=== PATIENT | male | born 1965 | race Caucasian/White ===

== ENCOUNTER 2017-03-12 23:17 | Emergency (ER) | payer SELFPAY ==
--- NOTE | 2017-03-12 23:40 | ERPHSYRPT ---
- History of Present Illness Time Seen by Provider: 03/12/17 23:33 Source: patient Exam Limitations: no limitations Patient Subjective Stated Complaint: pt states he got choked on a piece of turkey this evening adn feels like it is still stuck in his throat. Triage Nursing Assessment: pt alert and oriented. answers questions approp. pt ambulatory with steady gait noted. respirations nonlabored with lungs cta. pt restless in bed and holding throat when he swallows. nothing visualized in back of throat. no gagging or vomiting at this time. Physician History: The patient is a 51-year-old male with his complaining of hitting a piece of turkey meat stuck in his throat while eating 7 hours ago. He was chewing the meat when it accidentally slipped down his throat. He coughed it up. He felt like there was still a small piece stuck in his throat so he stuck his finger down his throat in order to make him vomit. He vomited. Now it feels like his throat is very painful when he swallows. He is unsure if anything is still in his throat. He has been able to drink significant amounts of water. When he vomited, he had some blood in his vomit. He has no problems breathing. His past medical history is significant for COPD and diabetes. Timing/Duration: hour(s) (7), sudden Severity: moderate Modifying Factors: Improves With: nothing Associated Symptoms: vomiting (self-induced) Allergies/Adverse Reactions: No Known Drug Allergies Allergy (Verified 03/12/17 23:33) Home Medications: Metformin HCl 1000 mg [Glucophage 1000 MG] 1,000 mg PO BID 12/23/14 [History] Hum Insulin NPH/Reg Insulin Hm [Humulin 70-30 Vial] 30 unit SQ BID 03/12/17 [ History] Hx Tetanus, Diphtheria Vaccination/Date Given: Yes Hx Influenza Vaccination/Date Given: No Hx Pneumococcal Vaccination/Date Given: No Immunizations Up to Date: Yes - Review of Systems Constitutional: No Fever, No Chills Eyes: No Symptoms Ears, Nose, & Throat: Throat Pain Respiratory: No Cough, No Dyspnea Cardiac: No Chest Pain, No Edema, No Syncope Abdominal/Gastrointestinal: Vomiting (self-induced) Genitourinary Symptoms: No Dysuria Musculoskeletal: No Back Pain, No Neck Pain Skin: No Rash Neurological: No Dizziness, No Focal Weakness, No Sensory Changes Psychological: No Symptoms Endocrine: No Symptoms Hematologic/Lymphatic: No Symptoms Immunological/Allergic: No Symptoms All Other Systems: Reviewed and Negative - Past Medical History Pertinent Past Medical History: Yes Endocrine Medical History: Diabetes Type II - Past Surgical History Past Surgical History: No - Social History Smoking Status: Current every day smoker How long have you smoked: 35 yrs Exposure to second hand smoke: Yes Drug Use: none Patient Lives Alone: No - Nursing Vital Signs Nursing Vital Signs: Initial Vital Signs Temperature 97.9 F Temperature Source Oral Pulse Rate 96 Respiratory Rate 16 Blood Pressure [] 99/68 Blood Pressure 122/83 Pain Intensity 6 - Physical Exam General Appearance: moderate distress (distress only when swallowing) Eye Exam: PERRL/EOMI, eyes nml inspection Ears, Nose, Throat Exam: normal ENT inspection, TMs normal, pharynx normal, moist mucous membranes Neck Exam: normal inspection, non-tender, supple, full range of motion Respiratory Exam: normal breath sounds, lungs clear, No respiratory distress Cardiovascular Exam: regular rate/rhythm, normal heart sounds, normal peripheral pulses Gastrointestinal/Abdomen Exam: soft, normal bowel sounds, No tenderness, No mass Rectal Exam: not done Back Exam: normal inspection, normal range of motion, No CVA tenderness, No vertebral tenderness Extremity Exam: normal inspection, normal range of motion, pelvis stable Neurologic Exam: alert, oriented x 3, cooperative, normal mood/affect, nml cerebellar function, nml station & gait, sensation nml, No motor deficits Skin Exam: normal color, warm, dry, No rash Lymphatic Exam: No adenopathy SpO2 Interpretation: normal SpO2: 100 Oxygen Delivery: Room Air - Radiology Exams Other X-ray Interpretation: Interpreted by me, Other (Possible FB in proximal anterior esophagus.) Ordered Tests: Active Orders 24 hr Category Date Time Status IV Insertion STAT Care 03/12/17 23:46 Active NECK SOFT TISSUE Stat Exams 03/12/17 23:45 Ordered Medication Summary Generic Name Dose Route Start Last Admin Trade Name Freq PRN Reason Stop Dose Admin Nitroglycerin 0.4 mg 03/13/17 01:00 03/13/17 01:04 Nitrostat 0.4 Mg Tablet SL 04/12/17 00:59 0.4 mg PRN PRN Administration CHEST PAIN Discontinued Medications Generic Name Dose Route Start Last Admin Trade Name Freq PRN Reason Stop Dose Admin Al Hydrox/Mg Hydrox/Simethicone Confirm 03/13/17 00:04 Maalox Es 30 Ml Unit Dose Administered 03/13/17 00:05 Dose 30 ml .ROUTE .STK-MED ONE Belladonna Alkaloids/Phenobarbital 60 ml 03/12/17 23:45 03/13/17 00:09 Gi Cocktail 60ml (Belladonn/Phenobarb/Lidoc* PO 03/12/17 23:46 60 ml STAT ONE Administration Belladonna Alkaloids/Phenobarbital Confirm 03/13/17 00:04 Donnatol Liquid Administered 03/13/17 00:05 Dose 64.8 mg .ROUTE .STK-MED ONE Glucagon Confirm 03/13/17 00:28 Glucagen 1 Mg Administered 03/13/17 00:29 Dose 1 mg .ROUTE .STK-MED ONE Glucagon 1 mg 03/13/17 00:29 03/13/17 00:30 Glucagen 1 Mg IV 03/13/17 00:30 1 mg STAT ONE Administration Glucagon 1 mg 03/13/17 00:46 03/13/17 00:52 Glucagen 1 Mg IV 03/13/17 00:47 1 mg STAT ONE Administration Lidocaine HCl Confirm 03/13/17 00:03 Xylocaine Hcl Viscous * Administered 03/13/17 00:04 Dose 20 ml .ROUTE .STK-MED ONE Morphine Sulfate 4 mg 03/13/17 00:33 03/13/17 00:38 Morphine Sulfate 4 Mg Inj IV 03/13/17 00:34 4 mg STAT ONE Administration Morphine Sulfate Confirm 03/13/17 00:36 Morphine Sulfate 4 Mg Inj Administered 03/13/17 00:37 Dose 4 mg .ROUTE .STK-MED ONE Morphine Sulfate 4 mg 03/13/17 01:13 03/13/17 01:15 Morphine Sulfate 4 Mg Inj IV 03/13/17 01:14 4 mg STAT ONE Administration Morphine Sulfate Confirm 03/13/17 01:15 Morphine Sulfate 4 Mg Inj Administered 03/13/17 01:16 Dose 4 mg .ROUTE .STK-MED ONE Nitroglycerin Confirm 03/13/17 01:00 Nitrostat 0.4 Mg (Ed) Administered 03/13/17 01:01 Dose 0.4 mg SL .STK-MED ONE - Progress Progress: unchanged Progress Note: 03/13/17 01:13 The patient was given glucagon 1 mg 2 by IV and nitroglycerin 0.4 mg sublingual without improvement. The patient consumed several ounces of a carbonated beverage without relief and without vomiting. The patient complains of severe proximal esophageal pain. Counseled pt/family regarding: diagnosis, rad results - Departure Time of Disposition: 01:41 Departure Disposition: Transfer (Transfer to [facility] per hospitalist, Dr Nguyễn, and GI doctor, Dr Marin.) Clinical Impression: Esophageal foreign body Condition: Stable Critical Care Time: No Additional Instructions: You are being transferred to [facility] per and Dr Marin for an esophageal foreign body. You were given glucagon 1 mg IV 2 and nitroglycerin glycerin 0.4 mg sublingual in the ER. You were also given morphine 4 mg IV 2.
[2017-03-12] MEDS ORDERED: GI COCKTAIL 60ML (Belladonn/Phenobarb/Lidoc PO ONE (23:45)
[2017-03-13] MEDS ORDERED: XYLOCAINE HCl Viscous ONE (00:03)
[2017-03-13] MEDS ORDERED: Donnatol Liquid ONE (00:04)
[2017-03-13] MEDS ORDERED: MAALOX ES 30 ML UNIT DOSE ONE (00:04)
[2017-03-13] MEDS ORDERED: GlucaGen 1 MG ONE (00:28)
[2017-03-13] MEDS ORDERED: GlucaGen 1 MG IV ONE ×2 (00:29→00:46)
[2017-03-13] MEDS ORDERED: MORPHINE SULFATE 4 MG INJ IV ONE ×2 (00:33→01:13)
[2017-03-13] MEDS ORDERED: MORPHINE SULFATE 4 MG INJ ONE ×2 (00:36→01:15)
[2017-03-13] MEDS ORDERED: Nitrostat 0.4 MG Tablet SL PRN (01:00)
[2017-03-13] MEDS ORDERED: Nitrostat 0.4 MG (ED) SL ONE (01:00)
[2017-03-13 02:13] VITALS: BP 97/64; PULSE 78; O2SAT 98
--- NOTE | 2017-03-13 15:12 | XRAY ---
Exam: Two-view neck soft tissues from 03/13/2017. Comparison: None. Indication: Patient choked while eating turkey. States he feels like it is stuck at the C5 or C6 level. Rule out foreign body. Findings: Upright AP and lateral images were obtained. The epiglottis, hypopharynx, and tracheal airway appear unremarkable. No prevertebral soft tissue swelling is seen. The hyoid bone and thyroid cartilage appear unremarkable. There is a 4 mm in length, transversely oriented, linear radiodensity anterior to the C5 level which could possibly relate to a small ingested foreign body, perhaps representing a tiny bone fragment. I note early/mild degenerative disc disease at C4-C5 manifested by minimal narrowing of the interspace with mild anterior and minimal posterior vertebral endplate spurring. The remainder of the cervical spine appears unremarkable. Impression: 1. There is a 4 mm transverse linear density seen about 13-14 mm anterior to the lower C5 level on the lateral radiograph of unclear etiology. This could possibly represent an ingested foreign body density within the proximal cervical esophagus ( ? bone fragment). 2. Mild/early degenerative disc disease is seen at C4-C5.
== END 2017-03-13 02:35 | disposition short-term general hospital (02) ==
LOC: ED 23:17
DX: T18.128A Food in esophagus causing other injury, initial encounter (principal)
CPT/HCPCS: 36000; 70360; 96374; 96375; 96376; 99285; J1610; J2270; A9270-GY

== ENCOUNTER 2018-05-24 09:21 | Emergency (ER) | payer MEDICAID, SELFPAY ==
[2018-05-24] MEDS ORDERED: Sodium Chloride 0.9% 1000 ML 1,000 ML IV SCH (09:30)
--- NOTE | 2018-05-24 09:38 | ERPHSYRPT ---
- History of Present Illness Time Seen by Provider: 05/24/18 09:32 Source: patient Exam Limitations: no limitations Physician History: This 52-year-old white male with history of diabetes COPD. He is brought by the medics patient apparently had a seizure in bed next to his significant other. Patient was noted to be postictal by the medics prior to arrival. Currently patient is alert oriented 3. Patient denies previous seizure activity. Past medical history includes COPD and diabetes. Past surgical history is negative. Social history positive tobacco use. Occasional alcohol use last time 2 weeks ago. Denies illicit drug use. Timing/Duration: today (just prior to arrival) Severity: moderate Modifying Factors: Improves With: nothing Associated Symptoms: other (patient had a seizure aned bit his tongue just prior to arrival), No nausea, No vomiting, No abdominal pain, No shortness of breath, No heartburn, No diaphoresis, No cough, No chills, No chest pain, No fever, No headaches, No loss of appetite, No malaise, No rash, No syncope, No seizure, No weakness Allergies/Adverse Reactions: No Known Drug Allergies Allergy (Verified 03/12/17 23:33) Home Medications: Metformin HCl 1000 mg [Glucophage 1000 MG] 1,000 mg PO BID 12/23/14 [History] Hum Insulin NPH/Reg Insulin Hm [Humulin 70-30 Vial] 30 unit SQ BID 03/12/17 [ History] Hx Tetanus, Diphtheria Vaccination/Date Given: Yes Hx Influenza Vaccination/Date Given: No Hx Pneumococcal Vaccination/Date Given: No - Review of Systems Constitutional: No Fever, No Chills Eyes: No Symptoms Ears, Nose, & Throat: Other (patient bit his tongue), No Ear Pain, No Ear Discharge, No Hearing Changes, No Tinnitus, No Nose Pain, No Nose Congestion, No Nose Discharge, No Sinus Drainage, No Epistaxis, No Mouth Pain, No Mouth Swelling, No Loose Teeth, No Throat Pain, No Throat Swelling, No Hoarse, No Painful Swallowing, No Snoring, No Stridor Respiratory: No Cough, No Dyspnea Cardiac: No Chest Pain, No Edema, No Syncope Abdominal/Gastrointestinal: No Abdominal Pain, No Nausea, No Vomiting, No Diarrhea Genitourinary Symptoms: No Dysuria Musculoskeletal: No Back Pain, No Neck Pain Skin: No Rash Neurological: Seizure (patiet had a seizure just pr heior to arrival) Psychological: No Symptoms Endocrine: No Symptoms All Other Systems: Reviewed and Negative - Past Medical History Pertinent Past Medical History: Yes Endocrine Medical History: Diabetes Type II - Past Surgical History Past Surgical History: No - Social History Smoking Status: Current every day smoker How long have you smoked: 35 yrs Exposure to second hand smoke: Yes Drug Use: none Patient Lives Alone: No - Nursing Vital Signs Nursing Vital Signs: Initial Vital Signs Temperature 97.8 F 05/24/18 09:26 Pulse Rate 78 05/24/18 09:26 Respiratory Rate 18 05/24/18 09:26 Blood Pressure 119/79 05/24/18 09:26 O2 Sat by Pulse Oximetry 98 05/24/18 09:26 Pain Scale Pain Intensity 6 - Physical Exam General Appearance: no apparent distress, alert Eye Exam: PERRL/EOMI, eyes nml inspection Ears, Nose, Throat Exam: normal ENT inspection, TMs normal, pharynx normal, moist mucous membranes, other (several abrasions on tongue,avulsed right lower incisor, ) Neck Exam: normal inspection, non-tender, supple, full range of motion Respiratory Exam: normal breath sounds, lungs clear, No respiratory distress Cardiovascular Exam: regular rate/rhythm ( tooth him follow-up wit), normal heart sounds, normal peripheral pulses Gastrointestinal/Abdomen Exam: soft, normal bowel sounds, No tenderness, No mass Back Exam: normal inspection, normal range of motion, No CVA tenderness, No vertebral tenderness Extremity Exam: normal inspection, normal range of motion, pelvis stable Neurologic Exam: alert, oriented x 3, cooperative, train electronic technician II-XII nml as tested, normal mood/affect, nml cerebellar function, nml station & gait, sensation nml, No motor deficits Skin Exam: normal color, warm, dry, No rash SpO2 Interpretation: normal (97%) - Course Nursing assessment & vital signs reviewed: Yes EKG Interpreted by Me: RATE (72 bpm), Sinus Rhythm, NORMAL AXIS, Other (EKG: Sinus rhythm, 72 bpm, normal axis, no acute ST or T wave changes noted.) - CT Exams Head CT Interpretation: Tele-radiologist Report (head CT: Impression: 1. No acute intracranial abnormality, 2. Volume loss.) Ordered Tests: Active Orders 24 hr Category Date Time Status Accucheck STAT Care 05/24/18 09:30 Active EKG-ER Only STAT Care 05/24/18 09:30 Active IV Insertion STAT Care 05/24/18 09:30 Active Pulse Oximetry (ED) STAT Care 05/24/18 09:30 Active Seizure Precautions -SCCHED STAT Care 05/24/18 09:30 Active HEAD WITHOUT CONTRAST [CT] Stat Exams 05/24/18 09:31 Taken CBC W DIFF Stat Lab 05/24/18 09:30 Completed CMP Stat Lab 05/24/18 09:30 Completed ETHYL ALCOHOL Stat Lab 05/24/18 09:30 Completed UA W/ MICROSCOPIC Stat Lab 05/24/18 11:00 Completed Urine Triage Profile Stat Lab 05/24/18 11:00 Completed Medication Summary Generic Name Dose Route Start Last Admin Trade Name Freq PRN Reason Stop Dose Admin Sodium Chloride 1,000 mls @ 100 mls/hr 05/24/18 09:30 05/24/18 10:46 Sodium Chloride 0.9% 1000 Ml IV 06/23/18 09:29 100 mls/hr .Q10H LESIA Administration Discontinued Medications Generic Name Dose Route Start Last Admin Trade Name Freq PRN Reason Stop Dose Admin Acetaminophen 650 mg 05/24/18 10:19 05/24/18 10:46 Tylenol 325 Mg PO 05/24/18 10:20 650 mg STAT ONE Administration Acetaminophen Confirm 05/24/18 10:38 Tylenol 325 Mg Administered 05/24/18 10:39 Dose 650 mg .ROUTE .STK-MED ONE Hydrocodone Bitart/Acetaminophen 1 tab 05/24/18 11:22 05/24/18 11:25 [place] 5/325 Mg PO 05/24/18 11:23 1 tab STAT ONE Administration Hydrocodone Bitart/Acetaminophen Confirm 05/24/18 11:24 [place] 5/325 Mg Administered 05/24/18 11:25 Dose 1 tab .ROUTE .STK-MED ONE Lab/Rad Data: Laboratory Result Diagrams 05/24/18 09:30 05/24/18 09:30 Laboratory Results 05/24/18 05/24/18 05/24/18 Range/Units 11:00 11:00 09:30 WBC (4.0-10.5) K/mm3 RBC (4.1-5.6) M/mm3 Hgb (12.5-18.0) gm/dl Hct (42-50) % MCV (78-100) fl MCH (26-32) pg MCHC (32-36) g/dl RDW (11.5-14.0) % Plt Count (150-450) K/mm3 MPV (6-9.5) fl Gran % (36.0-66.0) % Eos # (Auto) (0-0.5) Absolute Lymphs (auto) (1.0-4.6) Absolute Monos (auto) (0.0-1.3) Lymphocytes % (24.0-44.0) % Monocytes % (0.0-12.0) % Eosinophils % (0.00-5.0) % Basophils % (0.0-0.4) % Absolute Granulocytes (1.4-6.9) Basophils # (0-0.4) Sodium (137-145) mmol/L Potassium (3.5-5.1) mmol/L Chloride (98-107) mmol/L Carbon Dioxide (22-30) mmol/L Anion Gap (5-15) MEQ/L BUN (9-20) mg/dL Creatinine (0.66-1.25) mg/dL Estimated GFR ML/MIN Glucose (74-106) mg/dL Calcium (8.4-10.2) mg/dL Total Bilirubin (0.2-1.3) mg/dL AST (17-59) U/L ALT (0-50) U/L Alkaline Phosphatase (38-126) U/L Serum Total Protein (6.3-8.2) g/dL Albumin (3.5-5.0) g/dL Ur Collection Type CCMS Urine Color YELLOW (YELLOW) Urine Appearance CLEAR (CLEAR) Urine pH 5.0 (5-6) Ur Specific [place] 1.020 (1.005-1.025) Urine Protein TRACE (Negative) Urine Ketones MODERATE (NEGATIVE) Urine Blood 250 (0-5) Diomedes/ul Urine Nitrite NEGATIVE (NEGATIVE) Urine Bilirubin NEGATIVE (NEGATIVE) Urine Urobilinogen NORMAL (0-1) mg/dL Ur Leukocyte Esterase NEGATIVE (NEGATIVE) Urine Microscopic RBC 2-5 (0-2) /HPF Urine Microscopic WBC 0-2 (0-5) /HPF Ur Epithelial Cells RARE (FEW) /HPF Granular Casts 0-2 (NEGATIVE) /LPF Urine Mucus MODERATE (NEGATIVE) /HPF Urine Culture Reflexed NO (NO) Urine Glucose NEGATIVE (NEGATIVE) mg/dL Urine Opiates Level NEGATIVE (NEGATIVE) Ur Methadone NEGATIVE (NEGATIVE) Urine Barbiturates NEGATIVE (NEGATIVE) Ur Phencyclidine (PCP) NEGATIVE (NEGATIVE) Urine Amphetamine NEGATIVE (NEGATIVE) U Benzodiazepine Level NEGATIVE (NEGATIVE) Urine Cocaine NEGATIVE (NEGATIVE) Urine Marijuana (THC) NEGATIVE (NEGATIVE) Ethyl Alcohol < 10 (0-10) mg/dL Specimen Received 1100 05/24/18 05/24/18 05/24/18 Range/Units 09:30 09:30 WBC 11.5 H (4.0-10.5) K/mm3 RBC 4.55 (4.1-5.6) M/mm3 Hgb 14.7 (12.5-18.0) gm/dl Hct 43.1 (42-50) % MCV 94.7 (78-100) fl MCH 32.3 H (26-32) pg MCHC 34.1 (32-36) g/dl RDW 12.6 (11.5-14.0) % Plt Count 261 (150-450) K/mm3 MPV 10.8 H (6-9.5) fl Gran % 75.4 H (36.0-66.0) % Eos # (Auto) 0.08 (0-0.5) Absolute Lymphs (auto) 2.07 (1.0-4.6) Absolute Monos (auto) 0.63 (0.0-1.3) Lymphocytes % 18.1 L (24.0-44.0) % Monocytes % 5.5 (0.0-12.0) % Eosinophils % 0.7 (0.00-5.0) % Basophils % 0.3 (0.0-0.4) % Absolute Granulocytes 8.65 H (1.4-6.9) Basophils # 0.03 (0-0.4) Sodium 143 (137-145) mmol/L Potassium 3.7 (3.5-5.1) mmol/L Chloride 105 (98-107) mmol/L Carbon Dioxide 24 (22-30) mmol/L Anion Gap 18.0 H (5-15) MEQ/L BUN 18 (9-20) mg/dL Creatinine 0.87 (0.66-1.25) mg/dL Estimated GFR > 60.0 ML/MIN Glucose 80 (74-106) mg/dL Calcium 9.4 (8.4-10.2) mg/dL Total Bilirubin 0.30 (0.2-1.3) mg/dL AST 23 (17-59) U/L ALT 20 (0-50) U/L Alkaline Phosphatase 96 (38-126) U/L Serum Total Protein 8.0 (6.3-8.2) g/dL Albumin 4.8 (3.5-5.0) g/dL Ur Collection Type Urine Color (YELLOW) Urine Appearance (CLEAR) Urine pH (5-6) Ur Specific [place] (1.005-1.025) Urine Protein (Negative) Urine Ketones (NEGATIVE) Urine Blood (0-5) Diomedes/ul Urine Nitrite (NEGATIVE) Urine Bilirubin (NEGATIVE) Urine Urobilinogen (0-1) mg/dL Ur Leukocyte Esterase (NEGATIVE) Urine Microscopic RBC (0-2) /HPF Urine Microscopic WBC (0-5) /HPF Ur Epithelial Cells (FEW) /HPF Granular Casts (NEGATIVE) /LPF Urine Mucus (NEGATIVE) /HPF Urine Culture Reflexed (NO) Urine Glucose (NEGATIVE) mg/dL Urine Opiates Level (NEGATIVE) Ur Methadone (NEGATIVE) Urine Barbiturates (NEGATIVE) Ur Phencyclidine (PCP) (NEGATIVE) Urine Amphetamine (NEGATIVE) U Benzodiazepine Level (NEGATIVE) Urine Cocaine (NEGATIVE) Urine Marijuana (THC) (NEGATIVE) Ethyl Alcohol (0-10) mg/dL Specimen Received - Progress Progress: improved Progress Note: 05/24/18 09:42 This is a 52-year-old white male who arrives with complaint of a seizure and was found in bed after tonic-clonic activity noted by his . Patient initially postictally patient denies history of seizures in the past. Patient apparently pulled a tooth out of his right lower incisor region. This is been placed in milk. Patient does have a history of diabetes he states he drinks occasionally last time he drank was 2 weeks ago he denies any illicit drug use. . 05/24/18 10:[address] Awad at [facility] in [place] concerning the patient's avulsed tooth. He states that the patient can present to the [place] office when he is done here.. Patient's tooth was placed in milk. It is noted that there is only 1 4- 1/3 third of the tooth which appears to be root. Head CT has been obtained. I am awaiting urinalysis and UDS patient appears to be stable. He was given Tylenol for pain in his tongue. 05/24/18 11:25 Patient's lab work was all essentially normal with the exception of moderate ketones in his urine. Patient's glucose was running in the 80s. Patient was given on [place] tablet because of complaints of pain. The patient has been stable since arrival no further signs of seizures. Will plan to discharge patient. He will be given instructions as to no driving, no hazardous activity no heights. He will need to follow-up with his family doctor. He will also need to follow-up with [facility] in [place] on [address]. Today he is to bring his tooth with him. - Departure Time of Disposition: 11:27 Departure Disposition: Home Clinical Impression: Seizure Avulsed tooth Qualifiers: Encounter type: initial encounter Qualified Code(s): S03.2XXA - Dislocation of tooth, initial encounter Condition: Fair Critical Care Time: No Referrals: [facility]I LE MD [Primary Care Provider] - Instructions: Seizures, Adult (DC) Additional Instructions: Return home. No driving, no heights, no hazardous activity, take showers instead of baths, do not engage in any activity that might harm yourself or others. Follow-up with your family doctor. Follow-up with [facility], [address] [place], [place] today.bring your tooth with you leave it in milk. Monitor your blood sugars carefully. Return for acute distress or for severe symptoms. Refer to [facility] [phone]
[2018-05-24 09:45] LABS: BASOPHIL % 0.3 % (0.0-0.4); Basophil (Absolute #) 0.03 (0-0.4); Eosinophil % 0.7 % (0.00-5.0); Eosinophil (Absolute #) 0.08 (0-0.5); Granulocyte Absolute (ANC) 8.65 (1.4-6.9); Granulocytes % 75.4 % (36.0-66.0); Hematocrit 43.1 % (42-50); Hemoglobin 14.7 gm/dl (12.5-18.0); Lymphocyte (Absolute #) 2.07 (1.0-4.6); Lymphocytes % 18.1 % (24.0-44.0); Mean Cell Volume 94.7 fl (78-100); Mean Corpuscular Hemoglobin 32.3 pg (26-32); Mean Corpuscular Hgb Concent. 34.1 g/dl (32-36); Mean Platelet Volume 10.8 fl (6-9.5); Monocyte (Absolute #) 0.63 (0.0-1.3); Monocytes % 5.5 % (0.0-12.0); Platelet Count 261 K/mm3 (150-450); Red Blood Count 4.55 M/mm3 (4.1-5.6); Red Cell Distribution Width 12.6 % (11.5-14.0); White Blood Count 11.5 K/mm3 (4.0-10.5)
[2018-05-24 09:55] LABS: ALBUMIN 4.8 g/dL (3.5-5.0); ALKALINE PHOSPHATASE 96 U/L (38-126); BLOOD UREA NITROGEN 18 mg/dL (9-20); CHLORIDE 105 mmol/L (98-107); Calcium 9.4 mg/dL (8.4-10.2); Carbon Dioxide 24 mmol/L (22-30); Creatinine 1 0.87 mg/dL (0.66-1.25); Glucose 80 mg/dL (74-106); Potassium 3.7 mmol/L (3.5-5.1); SGOT/AST 23 U/L (17-59); SGPT/ALT 20 U/L (0-50); SODIUM 143 mmol/L (137-145)
[2018-05-24] MEDS ORDERED: TYLENOL 325 MG PO ONE (10:19)
[2018-05-24] MEDS ORDERED: TYLENOL 325 MG ONE (10:38)
[2018-05-24] MEDS ORDERED: Sodium Chloride 0.9% 1000 ML 1,000 ML ONE (10:38)
[2018-05-24 11:02] LABS: Appearance CLEAR (CLEAR); Leukocyte Esterase NEGATIVE (NEGATIVE); Nitrite NEGATIVE (NEGATIVE)
[2018-05-24 11:03] LABS: Bilirubin NEGATIVE (NEGATIVE); Blood 250 Ery/ul (0-5); Glucose NEGATIVE (NEGATIVE); Ketones MODERATE (NEGATIVE); Protein,Urine Dip TRACE (Negative); Urobilinogen NORMAL mg/dL (0-1)
[2018-05-24 11:11] LABS: Epithelial Cells RARE /HPF (FEW); Granular Casts 0-2 /LPF (NEGATIVE); Mucus MODERATE /HPF (NEGATIVE); WBC 0-2 /HPF (0-5)
[2018-05-24 11:18] LABS: Amphetamine,Urine NEGATIVE (NEGATIVE); Barbiturate,Urine NEGATIVE (NEGATIVE); Benzodiazepine,Urine NEGATIVE (NEGATIVE); Cocaine,Urine NEGATIVE (NEGATIVE); Methadone,Urine NEGATIVE (NEGATIVE); Opiate,Urine NEGATIVE (NEGATIVE); PCP,Urine NEGATIVE (NEGATIVE); THC,Urine NEGATIVE (NEGATIVE)
[2018-05-24] MEDS ORDERED: NORCO 5/325 MG PO ONE (11:22)
[2018-05-24] MEDS ORDERED: NORCO 5/325 MG ONE (11:24)
[2018-05-24 12:39] VITALS: BP 109/96; PULSE 68; O2SAT 99
--- NOTE | 2018-05-24 21:15 | XRAY ---
Indication: Nausea, headache, and loss of consciousness. Seizure. Multiple contiguous axial images obtained through the head without contrast. Comparison: None Normal appearing brain parenchyma, ventricles, and bony calvarium. Minimal mucosal thickening of both maxillary sinuses. Remaining visualized paranasal sinuses and mastoid air cells are clear. Impression: No acute intracranial abnormalities. Minimal paranasal sinus disease. Comment: Preliminary interpretation was made by [facility]. No discrepancy. CTDI 49.71
== END 2018-05-24 12:51 | disposition home or self-care (01) ==
LOC: ED 09:21
DX: R56.9 Unspecified convulsions (principal); S03.2XXA Dislocation of tooth, initial encounter; E11.9 Type 2 diabetes mellitus without complications; Z79.4 Long term (current) use of insulin
CPT/HCPCS: 36415; 70450; 80053; 80307; 81000; 82962; 85025; 93005; 96360; 96361; 99284; A9270-GY; G0480

== ENCOUNTER 2018-06-17 06:06 | Observation (INO) | payer OTHER ==
[2018-06-17] MEDS ORDERED: Sodium Chloride 0.9% 1000 ML 1,000 ML IV STA ×2 (06:37→07:11)
[2018-06-17] MEDS ORDERED: Sodium Chloride 0.9% 1000 ML 1,000 ML ONE ×3 (06:40→08:34)
[2018-06-17 06:55] LABS: BASOPHIL % 0.3 % (0.0-0.4); Basophil (Absolute #) 0.03 (0-0.4); Eosinophil % 0.2 % (0.00-5.0); Eosinophil (Absolute #) 0.02 (0-0.5); Granulocyte Absolute (ANC) 7.39 (1.4-6.9); Granulocytes % 81.3 % (36.0-66.0); Hematocrit 52.7 % (42-50); Hemoglobin 18.2 gm/dl (12.5-18.0); Lymphocyte (Absolute #) 1.45 (1.0-4.6); Mean Cell Volume 92.3 fl (78-100); Mean Corpuscular Hemoglobin 31.8 pg (26-32); Mean Corpuscular Hgb Concent. 34.5 g/dl (32-36); Mean Platelet Volume 11.7 fl (6-9.5); Monocytes % 2.2 % (0.0-12.0); Platelet Count 302 K/mm3 (150-450); Red Blood Count 5.71 M/mm3 (4.1-5.6); Red Cell Distribution Width 12.5 % (11.5-14.0); White Blood Count 9.1 K/mm3 (4.0-10.5)
[2018-06-17 07:12] LABS: ALBUMIN 5.6 g/dL (3.5-5.0); ANION GAP 37.7 MEQ/L (5-15); BILIRUBIN,TOTAL 0.5 mg/dL (0.2-1.3); Calcium 10.1 mg/dL (8.4-10.2); Creatinine 1 1.38 mg/dL (0.66-1.25); Potassium 5.2 mmol/L (3.5-5.1); Total Protein 9.7 g/dL (6.3-8.2)
--- NOTE | 2018-06-17 07:22 | ERPHSYRPT ---
- History of Present Illness Time Seen by Provider: 06/17/18 07:09 Source: patient Exam Limitations: no limitations Patient Subjective Stated Complaint: Pt arrives to ER with c/o vomiting once last night and twice this morning. States had blood sugar related seizure on 05/24, is DMII. Generlized weakness, fatigue. Concerned for dehydration. Triage Nursing Assessment: see above Physician History: 52-year-old white male arrives with complaint of nausea and vomiting since yesterday apparently had been seen here May 24, 2018 secondary to a seizure. The patient's states that he has been vomiting intermittently since he's been working with his family secondary to this. the patient complains of general malaise. past medical history is positive for copd and Diabetes past surgical history is negative. social history positive for tobacco use Timing/Duration: yesterday Severity: moderate Modifying Factors: Improves With: nothing Associated Symptoms: nausea, vomiting, malaise, No abdominal pain, No shortness of breath, No heartburn, No diaphoresis, No cough, No chills, No chest pain, No fever, No headaches, No loss of appetite, No rash, No syncope, No seizure, No weakness Allergies/Adverse Reactions: No Known Drug Allergies Allergy (Verified 06/17/18 06:30) Home Medications: Metformin HCl 1000 mg [Glucophage 1000 MG] 500 mg PO BID 12/23/14 [History] Empagliflozin [Jardiance] 10 mg PO DAILY 06/17/18 [History] Insulin Glargine,Hum.rec.anlog [Basaglar Kwikpen U-100] 10 unit SQ 06/17/18 [ History] Promethazine HCl 25 mg [Phenergan 25 mg] 25 mg PO 06/17/18 [History] Sertraline HCl 50 mg [Zoloft 50 mg Tablet] 50 mg PO DAILY 06/17/18 [History] Hx Tetanus, Diphtheria Vaccination/Date Given: Yes Hx Influenza Vaccination/Date Given: No Hx Pneumococcal Vaccination/Date Given: No - Review of Systems Constitutional: Malaise Eyes: No Symptoms Ears, Nose, & Throat: No Symptoms Respiratory: No Cough, No Dyspnea Cardiac: No Chest Pain, No Edema, No Syncope Abdominal/Gastrointestinal: Nausea, Vomiting, No Abdominal Pain, No Diarrhea, No Constipation, No Hematemesis, No Hematochezia, No Melena, No Dysphagia, No Appetite Changes Genitourinary Symptoms: No Dysuria Musculoskeletal: No Back Pain, No Neck Pain Skin: No Rash Neurological: No Dizziness, No Focal Weakness, No Sensory Changes Psychological: No Symptoms Endocrine: No Symptoms All Other Systems: Reviewed and Negative - Past Medical History Pertinent Past Medical History: Yes Endocrine Medical History: Diabetes Type II - Past Surgical History Past Surgical History: No - Social History Smoking Status: Current every day smoker How long have you smoked: 35 yrs Exposure to second hand smoke: No Drug Use: none Patient Lives Alone: No - Nursing Vital Signs Nursing Vital Signs: Initial Vital Signs Pulse Rate 99 H 06/17/18 06:20 Blood Pressure 125/89 06/17/18 06:20 O2 Sat by Pulse Oximetry 95 06/17/18 06:20 Pain Scale Pain Intensity 6 - Physical Exam General Appearance: moderate distress, alert, No no apparent distress, No lethargy, No cachetic, No obese, No thin Eye Exam: PERRL/EOMI, eyes nml inspection Ears, Nose, Throat Exam: normal ENT inspection, TMs normal, pharynx normal, moist mucous membranes Neck Exam: normal inspection, non-tender, supple, full range of motion Respiratory Exam: normal breath sounds, lungs clear, No respiratory distress Cardiovascular Exam: regular rate/rhythm, normal heart sounds, normal peripheral pulses, capillary refill <2 sec Gastrointestinal/Abdomen Exam: soft, normal bowel sounds, No tenderness, No mass Back Exam: normal inspection, normal range of motion, No CVA tenderness, No vertebral tenderness Extremity Exam: normal inspection, normal range of motion, pelvis stable Neurologic Exam: alert, oriented x 3, cooperative, 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 nml as tested, normal mood/affect, nml cerebellar function, nml station & gait, sensation nml, No motor deficits Skin Exam: normal color, warm, dry, No rash SpO2 Interpretation: normal Oxygen Delivery: Room Air - Course Nursing assessment & vital signs reviewed: Yes EKG Interpreted by Me: RATE (92 bpm), Sinus Rhythm, NORMAL AXIS, Other (EKG: Sinus rhythm, 92 beats per minute, normal axis, no acute ST or T wavechanges, normal EKG) Ordered Tests: Active Orders 24 hr Category Date Time Status Accucheck STAT Care 06/17/18 06:37 Active Accucheck STAT Care 06/17/18 08:13 Active Bench Inspector STAT Care 06/17/18 06:39 Active EKG-ER Only STAT Care 06/17/18 06:37 Active IV Insertion STAT Care 06/17/18 06:37 Active ACETAMINOPHEN Stat Lab 06/17/18 06:30 Completed AMYLASE Stat Lab 06/17/18 06:30 Completed BLOOD CULTURE Stat Lab 06/17/18 06:10 Received CBC W DIFF Stat Lab 06/17/18 06:35 Completed CMP Stat Lab 06/17/18 06:35 Completed CULTURE,URINE Stat Lab 06/17/18 07:16 Received ETHYL ALCOHOL Stat Lab 06/17/18 06:30 Completed LIPASE Stat Lab 06/17/18 06:30 Completed SALICYLATE Stat Lab 06/17/18 06:30 Completed UA W/ MICROSCOPIC Stat Lab 06/17/18 07:16 Completed Urine Triage Profile Stat Lab 06/17/18 07:16 Completed VENOUS BLOOD GAS Urgent Lab 06/17/18 07:30 Completed Medication Summary Generic Name Dose Route Start Last Admin Trade Name Freq PRN Reason Stop Dose Admin Sodium Chloride 1,000 mls @ 150 mls/hr 06/17/18 08:30 06/17/18 08:36 Sodium Chloride 0.9% 1000 Ml IV 07/17/18 08:29 150 mls/hr .[id number] LESIA Administration Discontinued Medications Generic Name Dose Route Start Last Admin Trade Name Freq PRN Reason Stop Dose Admin Sodium Chloride 1,000 mls @ 999 mls/hr 06/17/18 06:37 06/17/18 06:40 Sodium Chloride 0.9% 1000 Ml IV 06/17/18 07:37 999 mls/hr .Q1H1M STA Administration Sodium Chloride Confirm 06/17/18 06:40 Sodium Chloride 0.9% 1000 Ml Administered 06/17/18 06:41 Dose 1,000 mls @ ud .ROUTE .STK-MED ONE Sodium Chloride 1,000 mls @ 999 mls/hr 06/17/18 07:11 06/17/18 07:46 Sodium Chloride 0.9% 1000 Ml IV 06/17/18 08:11 999 mls/hr .Q1H1M STA Administration Sodium Chloride Confirm 06/17/18 07:44 Sodium Chloride 0.9% 1000 Ml Administered 06/17/18 07:45 Dose 1,000 mls @ ud .ROUTE .STK-MED ONE Morphine Sulfate 4 mg 06/17/18 08:11 06/17/18 08:14 Morphine Sulfate 4 Mg Inj IV 06/17/18 08:12 4 mg STAT ONE Administration Morphine Sulfate Confirm 06/17/18 08:13 Morphine Sulfate 4 Mg Inj Administered 06/17/18 08:14 Dose 4 mg .ROUTE .STK-MED ONE Ondansetron HCl 4 mg 06/17/18 07:43 06/17/18 07:46 Zofran 4 Mg/2 Ml Vial IV 06/17/18 07:44 4 mg STAT ONE Administration Ondansetron HCl Confirm 06/17/18 07:43 Zofran 4 Mg/2 Ml Vial Administered 06/17/18 07:44 Dose 4 mg .ROUTE .STK-MED ONE Lab/Rad Data: Laboratory Result Diagrams 06/17/18 06:35 06/17/18 06:35 Laboratory Results 06/17/18 06/17/18 06/17/18 Range/Units 07:30 07:16 07:16 WBC (4.0-10.5) K/mm3 RBC (4.1-5.6) M/mm3 Hgb (12.5-18.0) gm/dl Hct (42-50) % MCV (78-100) fl MCH (26-32) pg MCHC (32-36) g/dl RDW (11.5-14.0) % Plt Count (150-450) K/mm3 MPV (6-9.5) fl Gran % (36.0-66.0) % Eos # (Auto) (0-0.5) Absolute Lymphs (auto) (1.0-4.6) Absolute Monos (auto) (0.0-1.3) Lymphocytes % (24.0-44.0) % Monocytes % (0.0-12.0) % Eosinophils % (0.00-5.0) % Basophils % (0.0-0.4) % Absolute Granulocytes (1.4-6.9) Basophils # (0-0.4) pO2/FiO2 Ratio 21.0 % VBG pH 7.00 L* (7.32-7.42) VBG pCO2 at Pat Temp 33 L (42-55) mm/Hg VBG pO2 at Pat Temp 29 (25-40) mm/Hg VBG HCO3 8.1 L* (22-28) meq/L VBG O2 Sat ([place]) 52.1 L (95-100) VBG Base Excess -22.5 L (-2.0-2.0) VBG Hemoglobin 16.6 VBG Carboxyhemoglobin 2.0 (0.0-6.9) % T HGB POC Potassium 5.7 H (3.5-5.1) Sodium (137-145) mmol/L Potassium (3.5-5.1) mmol/L Chloride (98-107) mmol/L Carbon Dioxide (22-30) mmol/L Anion Gap (5-15) MEQ/L BUN (9-20) mg/dL Creatinine (0.66-1.25) mg/dL Estimated GFR ML/MIN Glucose (74-106) mg/dL Calcium (8.4-10.2) mg/dL Total Bilirubin (0.2-1.3) mg/dL AST (17-59) U/L ALT (0-50) U/L Alkaline Phosphatase (38-126) U/L Serum Total Protein (6.3-8.2) g/dL Albumin (3.5-5.0) g/dL Amylase (30-110) U/L Lipase (23-300) U/L Ur Collection Type VOID Urine Color YELLOW (YELLOW) Urine Appearance CLEAR (CLEAR) Urine pH 5.0 (5-6) Ur Specific [place] 1.030 (1.005-1.025) Urine Protein 100 (Negative) Urine Ketones LARGE (NEGATIVE) Urine Blood 5-10 (0-5) Diomedes/ul Urine Nitrite NEGATIVE (NEGATIVE) Urine Bilirubin NEGATIVE (NEGATIVE) Urine Urobilinogen NORMAL (0-1) mg/dL Ur Leukocyte Esterase NEGATIVE (NEGATIVE) Urine Microscopic RBC 5-10 (0-2) /HPF Urine Microscopic WBC 0-2 (0-5) /HPF Ur Epithelial Cells FEW (FEW) /HPF Urine Bacteria RARE (NEGATIVE) /HPF Hyaline Casts 0-2 (0-2) /LPF Urine Culture Reflexed YES (NO) Urine Glucose 1000 (NEGATIVE) mg/dL Salicylates (2-20) mg/dL Urine Opiates Level NEGATIVE (NEGATIVE) Ur Methadone NEGATIVE (NEGATIVE) Acetaminophen (10-30) ug/ml Urine Barbiturates NEGATIVE (NEGATIVE) Ur Phencyclidine (PCP) NEGATIVE (NEGATIVE) Urine Amphetamine NEGATIVE (NEGATIVE) U Benzodiazepine Level NEGATIVE (NEGATIVE) Urine Cocaine NEGATIVE (NEGATIVE) Urine Marijuana (THC) NEGATIVE (NEGATIVE) Ethyl Alcohol (0-10) mg/dL 06/17/18 06/17/18 06/17/18 Range/Units 06:35 06:35 06:30 WBC 9.1 (4.0-10.5) K/mm3 RBC 5.71 H (4.1-5.6) M/mm3 Hgb 18.2 H (12.5-18.0) gm/dl Hct 52.7 H (42-50) % MCV 92.3 (78-100) fl MCH 31.8 (26-32) pg MCHC 34.5 (32-36) g/dl RDW 12.5 (11.5-14.0) % Plt Count 302 (150-450) K/mm3 MPV 11.7 H (6-9.5) fl Gran % 81.3 H (36.0-66.0) % Eos # (Auto) 0.02 (0-0.5) Absolute Lymphs (auto) 1.45 (1.0-4.6) Absolute Monos (auto) 0.20 (0.0-1.3) Lymphocytes % 16.0 L (24.0-44.0) % Monocytes % 2.2 (0.0-12.0) % Eosinophils % 0.2 (0.00-5.0) % Basophils % 0.3 (0.0-0.4) % Absolute Granulocytes 7.39 H (1.4-6.9) Basophils # 0.03 (0-0.4) pO2/FiO2 Ratio % VBG pH (7.32-7.42) VBG pCO2 at Pat Temp (42-55) mm/Hg VBG pO2 at Pat Temp (25-40) mm/Hg VBG HCO3 (22-28) meq/L VBG O2 Sat ([place]) (95-100) VBG Base Excess (-2.0-2.0) VBG Hemoglobin VBG Carboxyhemoglobin (0.0-6.9) % T HGB POC Potassium (3.5-5.1) Sodium 141 (137-145) mmol/L Potassium 5.2 H (3.5-5.1) mmol/L Chloride 100 (98-107) mmol/L Carbon Dioxide 8 L* (22-30) mmol/L Anion Gap 37.7 H (5-15) MEQ/L BUN 21 H (9-20) mg/dL Creatinine 1.38 H (0.66-1.25) mg/dL Estimated GFR 57.5 ML/MIN Glucose 278 H (74-106) mg/dL Calcium 10.1 (8.4-10.2) mg/dL Total Bilirubin 0.50 (0.2-1.3) mg/dL AST 22 (17-59) U/L ALT 24 (0-50) U/L Alkaline Phosphatase 167 H (38-126) U/L Serum Total Protein 9.7 H (6.3-8.2) g/dL Albumin 5.6 H (3.5-5.0) g/dL Amylase (30-110) U/L Lipase (23-300) U/L Ur Collection Type Urine Color (YELLOW) Urine Appearance (CLEAR) Urine pH (5-6) Ur Specific [place] (1.005-1.025) Urine Protein (Negative) Urine Ketones (NEGATIVE) Urine Blood (0-5) Diomedes/ul Urine Nitrite (NEGATIVE) Urine Bilirubin (NEGATIVE) Urine Urobilinogen (0-1) mg/dL Ur Leukocyte Esterase (NEGATIVE) Urine Microscopic RBC (0-2) /HPF Urine Microscopic WBC (0-5) /HPF Ur Epithelial Cells (FEW) /HPF Urine Bacteria (NEGATIVE) /HPF Hyaline Casts (0-2) /LPF Urine Culture Reflexed (NO) Urine Glucose (NEGATIVE) mg/dL Salicylates (2-20) mg/dL Urine Opiates Level (NEGATIVE) Ur Methadone (NEGATIVE) Acetaminophen (10-30) ug/ml Urine Barbiturates (NEGATIVE) Ur Phencyclidine (PCP) (NEGATIVE) Urine Amphetamine (NEGATIVE) U Benzodiazepine Level (NEGATIVE) Urine Cocaine (NEGATIVE) Urine Marijuana (THC) (NEGATIVE) Ethyl Alcohol < 10 (0-10) mg/dL 06/17/18 Range/Units 06:30 WBC (4.0-10.5) K/mm3 RBC (4.1-5.6) M/mm3 Hgb (12.5-18.0) gm/dl Hct (42-50) % MCV (78-100) fl MCH (26-32) pg MCHC (32-36) g/dl RDW (11.5-14.0) % Plt Count (150-450) K/mm3 MPV (6-9.5) fl Gran % (36.0-66.0) % Eos # (Auto) (0-0.5) Absolute Lymphs (auto) (1.0-4.6) Absolute Monos (auto) (0.0-1.3) Lymphocytes % (24.0-44.0) % Monocytes % (0.0-12.0) % Eosinophils % (0.00-5.0) % Basophils % (0.0-0.4) % Absolute Granulocytes (1.4-6.9) Basophils # (0-0.4) pO2/FiO2 Ratio % VBG pH (7.32-7.42) VBG pCO2 at Pat Temp (42-55) mm/Hg VBG pO2 at Pat Temp (25-40) mm/Hg VBG HCO3 (22-28) meq/L VBG O2 Sat ([place]) (95-100) VBG Base Excess (-2.0-2.0) VBG Hemoglobin VBG Carboxyhemoglobin (0.0-6.9) % T HGB POC Potassium (3.5-5.1) Sodium (137-145) mmol/L Potassium (3.5-5.1) mmol/L Chloride (98-107) mmol/L Carbon Dioxide (22-30) mmol/L Anion Gap (5-15) MEQ/L BUN (9-20) mg/dL Creatinine (0.66-1.25) mg/dL Estimated GFR ML/MIN Glucose (74-106) mg/dL Calcium (8.4-10.2) mg/dL Total Bilirubin (0.2-1.3) mg/dL AST (17-59) U/L ALT (0-50) U/L Alkaline Phosphatase (38-126) U/L Serum Total Protein (6.3-8.2) g/dL Albumin (3.5-5.0) g/dL Amylase 53 (30-110) U/L Lipase 41 (23-300) U/L Ur Collection Type Urine Color (YELLOW) Urine Appearance (CLEAR) Urine pH (5-6) Ur Specific [place] (1.005-1.025) Urine Protein (Negative) Urine Ketones (NEGATIVE) Urine Blood (0-5) Diomedes/ul Urine Nitrite (NEGATIVE) Urine Bilirubin (NEGATIVE) Urine Urobilinogen (0-1) mg/dL Ur Leukocyte Esterase (NEGATIVE) Urine Microscopic RBC (0-2) /HPF Urine Microscopic WBC (0-5) /HPF Ur Epithelial Cells (FEW) /HPF Urine Bacteria (NEGATIVE) /HPF Hyaline Casts (0-2) /LPF Urine Culture Reflexed (NO) Urine Glucose (NEGATIVE) mg/dL Salicylates < 1.0 L (2-20) mg/dL Urine Opiates Level (NEGATIVE) Ur Methadone (NEGATIVE) Acetaminophen < 10 L (10-30) ug/ml Urine Barbiturates (NEGATIVE) Ur Phencyclidine (PCP) (NEGATIVE) Urine Amphetamine (NEGATIVE) U Benzodiazepine Level (NEGATIVE) Urine Cocaine (NEGATIVE) Urine Marijuana (THC) (NEGATIVE) Ethyl Alcohol (0-10) mg/dL - Progress Progress: improved Progress Note: 06/17/18 08:45 52-year-old white male with history of COPD, diabetes mellitus. Patient arrives with complaint of vomiting a general malaise Patient had been seen on May 24, 2018 secondary to a seizure at that time he had actually dislodged a tooth it was thought possibly the patient could' ve had a hypoglycemic episode. Patient arrives with complaint of nausea and vomiting for the past 2 days his states his blood sugars have been elevated. He has general malaise. Patient is afebrile Patient with a blood sugar in the 290s on arrival EKG on this patient is remarkable for normal sinus rhythm 92 bpm normal axis no acute ST or T wave changes essentially normal EKG Chemistry shows a glucose of 278 sodium 141 potassium 5.2 chloride 100 CO2 is 8 BUN 21 creatinine 1.38 anion gap is elevated at 37.7 patient's venous gases show a pH of 7 Patient's urine shows 1000 glucose and a large amount of ketones and specific gravity 1.030 pH 5.0 CBC white count 9.1 hemoglobin 18.2 hematocrit 52.7 platelets are 302 Patient is given 2 L of normal saline Accu-Chek shows a glucose around 260 Patient was given morphine 4 mg were headache and Zofran 4 mg for nausea and vomiting. Patient has been placed on normal saline at 150 mL per hour. I've discussed the case with Dr. La. Will place patient on telemetry observation. Will place patient on sliding scale insulin coverage with every 2 hour Accu- Cheks. impression diabetic ketoacidosis, nausea and vomiting. - Departure Time of Disposition: 08:50 Departure Disposition: Observation Clinical Impression: Vomiting Diabetic ketoacidosis Qualifiers: Diabetes mellitus type: type 2 Diabetes mellitus complication detail: without coma Qualified Code(s): E11.10 - Type 2 diabetes mellitus with ketoacidosis without coma Condition: Fair Critical Care Time: No
[2018-06-17 07:29] LABS: AMYLASE 53 U/L (30-110); LIPASE 41 U/L (23-300)
[2018-06-17 07:32] LABS: Appearance CLEAR (CLEAR); Leukocyte Esterase NEGATIVE (NEGATIVE); Nitrite NEGATIVE (NEGATIVE)
[2018-06-17 07:33] LABS: Bilirubin NEGATIVE (NEGATIVE); Glucose 1000 mg/dL (NEGATIVE); Ketones LARGE (NEGATIVE); Protein,Urine Dip 100 (Negative); Urobilinogen NORMAL mg/dL (0-1)
[2018-06-17 07:35] LABS: ACETAMINOPHEN < 10 ug/ml (10-30); SALICYLATE < 1.0 mg/dL (2-20)
[2018-06-17 07:42] LABS: Bacteria RARE /HPF (NEGATIVE); Epithelial Cells FEW /HPF (FEW); Hyaline Casts 0-2 /LPF (0-2); WBC 0-2 /HPF (0-5)
[2018-06-17] MEDS ORDERED: Zofran 4 MG/2 ML VIAL IV ONE (07:43)
[2018-06-17] MEDS ORDERED: Zofran 4 MG/2 ML VIAL ONE (07:43)
[2018-06-17 07:53] LABS: Amphetamine,Urine NEGATIVE (NEGATIVE); Barbiturate,Urine NEGATIVE (NEGATIVE); Benzodiazepine,Urine NEGATIVE (NEGATIVE); Cocaine,Urine NEGATIVE (NEGATIVE); Methadone,Urine NEGATIVE (NEGATIVE); Opiate,Urine NEGATIVE (NEGATIVE); PCP,Urine NEGATIVE (NEGATIVE); THC,Urine NEGATIVE (NEGATIVE)
[2018-06-17 07:55] LABS: VBG BASE EXCESS -22.5 (-2.0-2.0); VBG HCO3- 8.1 meq/L (22-28); VBG HEMOGLOBIN 16.6; VBG O2 SATURATION 52.1 (95-100); VBG POTASSIUM 5.7 (3.5-5.1)
[2018-06-17] MEDS ORDERED: MORPHINE SULFATE 4 MG INJ IV ONE (08:11)
[2018-06-17] MEDS ORDERED: MORPHINE SULFATE 4 MG INJ ONE (08:13)
[2018-06-17] MEDS ORDERED: Sodium Chloride 0.9% 1000 ML 1,000 ML IV SCH (08:30)
[2018-06-17] MEDS ORDERED: Zofran 4 MG/2 ML VIAL IV PRN (09:15)
[2018-06-17] MEDS ORDERED: TYLENOL 325 MG PO PRN (10:00)
--- NOTE | 2018-06-17 10:04 | HP ---
CHIEF COMPLAINT: Vomiting, altered mental status. HISTORY OF PRESENT ILLNESS: Chaitanya Rivas is a 52 year-old male with a history of diabetes who I have seen in the past but he has been doctoring at a wellness clinic in [place] through his employer as of late. He has a history of type 2 diabetes. He is currently taking Jardiance 10 mg daily as well as Basaglar 10 units twice daily. Apparently he had been referred to Eulalia Craig, a nurse practitioner with [facility] Endocrinology, but has not yet seen her but he has been in contact with her. In any event, he has been having wild fluctuations of his blood sugars over the proceeding several weeks. He was actually in the emergency department earlier this month on 05/24/2018 due to a seizure. At that time he was apparently hypoglycemic. He had frequent hypoglycemic excursions therefore his insulin which he was taking a mix Humulin 70/30 with 30 units subcu twice daily had been changed at that time. He had high blood sugars in the 200 and 300's for the last several days. He had some confusion, some intermittent vomiting which has become more regular today. He is unable to keep anything down. His reports that he has poor short term memory since he had the seizure earlier this month. PAST MEDICAL HISTORY: Anxiety. Depression. Diabetes mellitus type 2. PAST SURGICAL HISTORY: He has had no previous surgeries. CURRENT MEDICATIONS: Includes Zoloft 50 mg daily, Jardiance 10 mg daily, Basaglar 10 units subcu b.i.d. ALLERGIES: NKDA. SOCIAL HISTORY: He is a smoker, denies alcohol or drug use. He is employed. FAMILY HISTORY: Noncontributory. REVIEW OF SYSTEMS: GENERAL: No fever or chills. HEENT: No sore throat or difficulty swallowing. RESPIRATORY: No cough. No shortness of breath. CVS: No chest pain. No peripheral edema. No syncope. GI: Positive for nausea, vomiting. Denies abdominal pain. No diarrhea or constipation. SKIN: No rash. No lesions. NEUROLOGIC: He has had some frequent headaches. Feels confused and has had some dizziness over the preceding several days. No focal weakness, numbness or paresthesia. The remainder of systems reviewed on presentation was found to be negative. PHYSICAL EXAMINATION: Temperature 97.7F, pulse 90, blood pressure 116/76, respiratory rate 13. Oxygen saturation 99% on room air. GENERAL: He is alert, seen in his room with the lights out wearing sun glasses. He had some morphine for his headache so he is slightly lethargic but answers questions and responds appropriately, cooperative. HEENT: Head - Normocephalic, atraumatic. NECK: Supple without lymphadenopathy. CVS: Regular rate and rhythm. No murmur. No gallop. No rub. RESPIRATORY: Clear to auscultation bilaterally. ABDOMEN: Soft, nontender, nondistended. SKIN: [place], warm and dry. EXTREMITIES: No clubbing. No cyanosis. No edema. NEUROLOGIC: No slurred speech. No facial droop. Moves all extremities equally. Sensation intact diffusely. No focal neurological deficits present. LAB DATA AND TESTS: White blood cell count 9,100, hemoglobin 18.2, PLT count 302,000. Venous blood gas pH 7.00, pCO2 of 33. Bicarbonate 8.1. Chemistry: Sodium 141, potassium 5.2, chloride 100, carbon dioxide 8, BUN 21, creatinine 1.38, glucose 278. UA shows a large amount of ketones with some proteinuria. Urine drug screen negative. Salicylates, acetaminophen and ethanol alcohol are negative. On review of his previous record, head CT on 05/24/2018 showed no acute intracranial abnormality. ASSESSMENT: Chaitanya Rivas is a 52 year-old male with previous history of diabetes mellitus type 2 who now presents with diabetic ketoacidosis with anion gap present. At this time due to the mild to moderate elevation of glucose he will be receiving frequent subcutaneous insulin injections. He has received 2 liters of normal saline here in the emergency department. Therefore I will follow his anion gap with serial BMP's. He will likely need an increase in his basal insulin and may need consider addition of short-acting subcutaneous insulin with needles. I am going to stop his Jardiance due to this episode of diabetic ketoacidosis. I feel as though his neurological symptoms are likely related to the diabetic ketoacidosis so we will see how he improves with treatment at this time. Again, the previous work up was negative in the emergency department and those records have been reviewed today.
[2018-06-17] MEDS: NovoLOG Insulin SQ PRN ×4 (11:04→15:02)
[2018-06-17] MEDS: Lantus Insulin SQ SCH ×2 (11:04→22:12)
[2018-06-17] MEDS: Sodium Chloride 0.9% 1000 ML 1,000 ML IV SCH ×2 (11:56→14:34)
[2018-06-17] MEDS: MORPHINE SULFATE 4 MG INJ IV PRN ×3 (11:58→20:08)
[2018-06-17] MEDS: Zofran 4 MG/2 ML VIAL IV PRN ×3 (12:02→20:08)
[2018-06-17 14:57] LABS: BLOOD UREA NITROGEN 23 mg/dL (9-20); CHLORIDE 106 mmol/L (98-107); Calcium 8.9 mg/dL (8.4-10.2); Creatinine 1 1.26 mg/dL (0.66-1.25); Glucose 303 mg/dL (74-106); SODIUM 139 mmol/L (137-145)
[2018-06-17 15:02] LABS: Carbon Dioxide < 5 mmol/L (22-30); Potassium 6.9 mmol/L (3.5-5.1)
[2018-06-17] MEDS: NOVOLIN R INSULIN (FOR DRIPS)** 100 UNITS in Sodium Chloride 0.9% 100 ML IVPB 100 ML IV PRN (15:34)
[2018-06-17] MEDS ORDERED: NOVOLIN R INSULIN (FOR DRIPS)** 100 UNITS in Sodium Chloride 0.9% 100 ML IVPB 100 ML IV PRN (16:37)
[2018-06-17] MEDS ORDERED: Dextrose 5% -0.45 NaCl 1000 ML 1,000 ML IV ONE (17:59)
[2018-06-17] MEDS ORDERED: Dextrose 5% -0.45 NaCl 1000 ML 1,000 ML IV SCH (18:00)
[2018-06-17 18:35] LABS: ANION GAP 27.4 MEQ/L (5-15); BLOOD UREA NITROGEN 21 mg/dL (9-20); CHLORIDE 109 mmol/L (98-107); Calcium 8.9 mg/dL (8.4-10.2); Creatinine 1 1.18 mg/dL (0.66-1.25); Glucose 208 mg/dL (74-106); SODIUM 139 mmol/L (137-145)
[2018-06-17 18:36] LABS: PHOSPHOROUS 4.4 mg/dL (2.5-4.5)
[2018-06-17 18:51] LABS: Carbon Dioxide 8 mmol/L (22-30)
[2018-06-17] MEDS ORDERED: INSULIN GLARGINE HUM REC ANLOG 15 UNIT SQ SCH (22:00)
[2018-06-17] MEDS: ZOLOFT 50 MG TABLET PO SCH (22:12)
[2018-06-17 22:21] LABS: ANION GAP 17.3 MEQ/L (5-15); BLOOD UREA NITROGEN 18 mg/dL (9-20); CHLORIDE 108 mmol/L (98-107); Calcium 8.7 mg/dL (8.4-10.2); Creatinine 1 0.89 mg/dL (0.66-1.25); Glucose 187 mg/dL (74-106); Potassium 3.8 mmol/L (3.5-5.1); SODIUM 135 mmol/L (137-145)
[2018-06-17 22:28] LABS: Carbon Dioxide 13 mmol/L (22-30)
[2018-06-17] MEDS ORDERED: D5W/0.45NS W/ 20mEq KCl 1000 ML 1,000 ML IV ONE (23:20)
[2018-06-17] MEDS ORDERED: D5W/0.45NS W/ 20mEq KCl 1000 ML 1,000 ML IV SCH (23:30)
[2018-06-18] MEDS: NOVOLIN R INSULIN (FOR DRIPS)** 100 UNITS in Sodium Chloride 0.9% 100 ML IVPB 100 ML IV PRN (01:06)
[2018-06-18 02:16] LABS: BASOPHIL % 0.1 % (0.0-0.4); Basophil (Absolute #) 0.01 (0-0.4); Eosinophil % 0.2 % (0.00-5.0); Eosinophil (Absolute #) 0.02 (0-0.5); Granulocyte Absolute (ANC) 7.62 (1.4-6.9); Hematocrit 40.1 % (42-50); Hemoglobin 14.5 gm/dl (12.5-18.0); Lymphocyte (Absolute #) 2.36 (1.0-4.6); Mean Cell Volume 89.3 fl (78-100); Mean Corpuscular Hemoglobin 32.3 pg (26-32); Mean Corpuscular Hgb Concent. 36.2 g/dl (32-36); Monocyte (Absolute #) 0.72 (0.0-1.3); Monocytes % 6.7 % (0.0-12.0); Platelet Count 202 K/mm3 (150-450); Red Blood Count 4.49 M/mm3 (4.1-5.6); Red Cell Distribution Width 11.8 % (11.5-14.0); White Blood Count 10.7 K/mm3 (4.0-10.5)
[2018-06-18 02:43] LABS: ALBUMIN 3.9 g/dL (3.5-5.0); ALKALINE PHOSPHATASE 96 U/L (38-126); ANION GAP 13.4 MEQ/L (5-15); BLOOD UREA NITROGEN 17 mg/dL (9-20); CHLORIDE 108 mmol/L (98-107); Calcium 8.7 mg/dL (8.4-10.2); Carbon Dioxide 18 mmol/L (22-30); Glucose 126 mg/dL (74-106); Potassium 3.6 mmol/L (3.5-5.1); SGOT/AST 12 U/L (17-59); SGPT/ALT 13 U/L (0-50); SODIUM 136 mmol/L (137-145); Total Protein 6.8 g/dL (6.3-8.2)
[2018-06-18] MEDS: Sodium Chloride 0.9% 1000 ML 1,000 ML IV SCH ×4 (03:53→22:28)
[2018-06-18] MEDS: MORPHINE SULFATE 4 MG INJ IV PRN ×3 (06:18→19:24)
[2018-06-18] MEDS: Zofran 4 MG/2 ML VIAL IV PRN ×4 (06:18→19:24)
--- NOTE | 2018-06-18 08:05 | PCM.NOTE ---
Date and Time: 06/18/18 08 Subjective Assessment: patient feeling better, insulin drip is off. anion gap is closed. no more nausea or vomiting, tolerating liquids. still has some headache but otherwise better Objective Exam General Appearance: no apparent distress, alert Skin Exam: normal color, warm, dry Eye Exam: PERRL, EOMI, eyes nml inspection Respiratory Exam: normal breath sounds, lungs clear, No respiratory distress Cardiovascular Exam: regular rate/rhythm, normal heart sounds Gastrointestinal/Abdomen Exam: soft, No tenderness, No mass Back Exam: normal inspection, normal range of motion, No CVA tenderness, No vertebral tenderness OBJECTIVE DATA Vital Signs: Vital Signs - 24 hr Temp Pulse Resp BP Pulse Ox 06/18/18 06:54 67 20 107/69 96 06/18/18 06:00 69 16 107/69 98 06/18/18 05:00 71 16 91/54 98 06/18/18 04:00 98.8 F 68 13 91/62 97 06/18/18 03:00 67 16 101/61 97 06/18/18 02:00 79 17 94/63 95 06/18/18 01:00 72 21 94/63 98 06/18/18 00:00 98.7 F 77 20 94/66 98 06/17/18 23:00 76 19 100/66 96 06/17/18 22:00 80 17 105/68 98 06/17/18 21:00 82 19 104/69 98 06/17/18 20:00 98 F 83 15 111/75 99 06/17/18 19:00 85 14 106/66 99 06/17/18 18:00 95 H 21 144/72 98 06/17/18 16:59 89 15 111/75 98 06/17/18 16:00 88 17 120/73 100 06/17/18 11:54 98.5 F 104 H 18 110/60 99 06/17/18 10:56 98 06/17/18 09:16 98 F 88 18 130/76 99 06/17/18 09:13 98.0 F 88 18 130/76 99 06/17/18 08:47 84 16 99 Pain Assessment - Last Documented Pain Intensity 8 Pain Scale Used 0-10 Pain Scale Intake and Output: Intake & Output 06/15/18 06/16/18 06/17/18 06/18/18 11:59 11:59 11:59 11:59 Intake Total 5883 Output Total 300 2100 Balance -300 3783 Weight 80.8 kg 86.1 kg Lab Results: Accuchecks 06/18/1806/18/1806/18/1806/18/1806/18/1806/18/1806/18/1806/18/1806/17/1806/17/1806/17/1806/17/1806/17/1806/17/1806/17/1806/17/1806/17/1806/17/1806/17/18 Time 06:27 Time 06:27 Time 06:00 Time 04:00 Time 03:00 Time 02:00 Time 01:00 Time 00:00 Time 23:00 Time 22:00 Time 20:00 Time 20:00 Time 19:07 Time 18:03 Time 16:59 Time 16:00 Time 15:30 Time 13:00 Time 10:50 Accucheck Value: 128 Accucheck Value: 74 Accucheck Value: 59 Accucheck Value: 104 Accucheck Value: 150 Accucheck Value: 120 Accucheck Value: 146 Accucheck Value: 142 Accucheck Value: 323 Accucheck Value: 174 Accucheck Value: 223 Accucheck Value: 242 Accucheck Value: 221 Accucheck Value: 207 Accucheck Value: 315 Accucheck Value: 253 Accucheck Value: 268 Accucheck Value: 323 Accucheck Value: 284 Accucheck Value: 268 Lab Results-Last 24 Hours 06/17/18 06/17/18 06/17/18 Range/Units 13:52 17:58 17:58 WBC (4.0-10.5) K/mm3 RBC (4.1-5.6) M/mm3 Hgb (12.5-18.0) gm/dl Hct (42-50) % MCV (78-100) fl MCH (26-32) pg MCHC (32-36) g/dl RDW (11.5-14.0) % Plt Count (150-450) K/mm3 MPV (6-9.5) fl Gran % (36.0-66.0) % Eos # (Auto) (0-0.5) Absolute Lymphs (auto) (1.0-4.6) Absolute Monos (auto) (0.0-1.3) Lymphocytes % (24.0-44.0) % Monocytes % (0.0-12.0) % Eosinophils % (0.00-5.0) % Basophils % (0.0-0.4) % Absolute Granulocytes (1.4-6.9) Basophils # (0-0.4) Sodium 139 139 (137-145) mmol/L Potassium 6.9 H* 5.0 (3.5-5.1) mmol/L Chloride 106 109 H (98-107) mmol/L Carbon Dioxide < 5 L* 8 L* (22-30) mmol/L Anion Gap Not Reportable 27.4 H BUN 23 H 21 H (9-20) mg/dL Creatinine 1.26 H 1.18 (0.66-1.25) mg/dL Estimated GFR > 60.0 > 60.0 ML/MIN Glucose 303 H 208 H (74-106) mg/dL Hemoglobin A1c (4.5-6.0) % Calcium 8.9 8.9 (8.4-10.2) mg/dL Phosphorus 4.4 (2.5-4.5) mg/dL Magnesium 2.7 H (1.6-2.3) mg/dL Total Bilirubin (0.2-1.3) mg/dL AST (17-59) U/L ALT (0-50) U/L Alkaline Phosphatase (38-126) U/L Serum Total Protein (6.3-8.2) g/dL Albumin (3.5-5.0) g/dL 06/17/18 06/18/18 06/18/18 Range/Units 22:00 02:00 02:10 WBC 10.7 H (4.0-10.5) K/mm3 RBC 4.49 (4.1-5.6) M/mm3 Hgb 14.5 (12.5-18.0) gm/dl Hct 40.1 L (42-50) % MCV 89.3 (78-100) fl MCH 32.3 H (26-32) pg MCHC 36.2 H (32-36) g/dl RDW 11.8 (11.5-14.0) % Plt Count 202 (150-450) K/mm3 MPV 11.0 H (6-9.5) fl Gran % 71.0 H (36.0-66.0) % Eos # (Auto) 0.02 (0-0.5) Absolute Lymphs (auto) 2.36 (1.0-4.6) Absolute Monos (auto) 0.72 (0.0-1.3) Lymphocytes % 22.0 L (24.0-44.0) % Monocytes % 6.7 (0.0-12.0) % Eosinophils % 0.2 (0.00-5.0) % Basophils % 0.1 (0.0-0.4) % Absolute Granulocytes 7.62 H (1.4-6.9) Basophils # 0.01 (0-0.4) Sodium 135 L (137-145) mmol/L Potassium 3.8 (3.5-5.1) mmol/L Chloride 108 H (98-107) mmol/L Carbon Dioxide 13 L* (22-30) mmol/L Anion Gap 17.3 H BUN 18 (9-20) mg/dL Creatinine 0.89 (0.66-1.25) mg/dL Estimated GFR > 60.0 ML/MIN Glucose 187 H (74-106) mg/dL Hemoglobin A1c (4.5-6.0) % Calcium 8.7 (8.4-10.2) mg/dL Phosphorus 2.0 L (2.5-4.5) mg/dL Magnesium 2.2 (1.6-2.3) mg/dL Total Bilirubin (0.2-1.3) mg/dL AST (17-59) U/L ALT (0-50) U/L Alkaline Phosphatase (38-126) U/L Serum Total Protein (6.3-8.2) g/dL Albumin (3.5-5.0) g/dL 06/18/18 06/18/18 Range/Units 02:10 02:10 WBC (4.0-10.5) K/mm3 RBC (4.1-5.6) M/mm3 Hgb (12.5-18.0) gm/dl Hct (42-50) % MCV (78-100) fl MCH (26-32) pg MCHC (32-36) g/dl RDW (11.5-14.0) % Plt Count (150-450) K/mm3 MPV (6-9.5) fl Gran % (36.0-66.0) % Eos # (Auto) (0-0.5) Absolute Lymphs (auto) (1.0-4.6) Absolute Monos (auto) (0.0-1.3) Lymphocytes % (24.0-44.0) % Monocytes % (0.0-12.0) % Eosinophils % (0.00-5.0) % Basophils % (0.0-0.4) % Absolute Granulocytes (1.4-6.9) Basophils # (0-0.4) Sodium 136 L (137-145) mmol/L Potassium 3.6 (3.5-5.1) mmol/L Chloride 108 H (98-107) mmol/L Carbon Dioxide 18 L (22-30) mmol/L Anion Gap 13.4 BUN 17 (9-20) mg/dL Creatinine 0.90 (0.66-1.25) mg/dL Estimated GFR > 60.0 ML/MIN Glucose 126 H (74-106) mg/dL Hemoglobin A1c 8.23 H (4.5-6.0) % Calcium 8.7 (8.4-10.2) mg/dL Phosphorus (2.5-4.5) mg/dL Magnesium (1.6-2.3) mg/dL Total Bilirubin 0.30 (0.2-1.3) mg/dL AST 12 L (17-59) U/L ALT 13 (0-50) U/L Alkaline Phosphatase 96 (38-126) U/L Serum Total Protein 6.8 (6.3-8.2) g/dL Albumin 3.9 (3.5-5.0) g/dL Assessment/Plan (1) Diabetic ketoacidosis Current Visit: Yes Status: Acute Qualifiers: Diabetes mellitus type: type 2 Diabetes mellitus complication detail: without coma Qualified Code(s): E11.10 - Type 2 diabetes mellitus with ketoacidosis without coma Assessment & Plan: continue long acting basaglar, increased to 15 units bid, will add 5 units scheduled novolog with meals and observe. continue IV fluids Code(s): E13.10 - OTH DIABETES MELLITUS WITH KETOACIDOSIS WITHOUT COMA (2) Vomiting Current Visit: Yes Status: Acute Code(s): R11.10 - VOMITING, UNSPECIFIED
[2018-06-18 09:13] LABS: ANION GAP 13.3 MEQ/L (5-15); BLOOD UREA NITROGEN 14 mg/dL (9-20); CHLORIDE 107 mmol/L (98-107); Calcium 8.4 mg/dL (8.4-10.2); Carbon Dioxide 19 mmol/L (22-30); Creatinine 1 0.85 mg/dL (0.66-1.25); Glucose 136 mg/dL (74-106); SODIUM 136 mmol/L (137-145)
[2018-06-18] MEDS: Lantus Insulin SQ SCH ×2 (09:32→22:27)
[2018-06-18] MEDS: NovoLOG Insulin SQ SCH ×3 (09:32→16:48)
[2018-06-18] MEDS: NORCO 5/325 MG PO PRN ×2 (10:29→22:28)
[2018-06-18] MEDS ORDERED: NovoLOG Insulin SQ SCH (11:30)
[2018-06-18] MEDS: ZOLOFT 50 MG TABLET PO SCH (22:28)
[2018-06-19] MEDS: Sodium Chloride 0.9% 1000 ML 1,000 ML IV SCH (05:13)
[2018-06-19 06:09] LABS: BASOPHIL % 0.4 % (0.0-0.4); Basophil (Absolute #) 0.02 (0-0.4); Eosinophil % 2.2 % (0.00-5.0); Granulocyte Absolute (ANC) 1.96 (1.4-6.9); Granulocytes % 42.7 % (36.0-66.0); Hematocrit 34.6 % (42-50); Hemoglobin 12.2 gm/dl (12.5-18.0); Lymphocyte (Absolute #) 2.27 (1.0-4.6); Lymphocytes % 49.3 % (24.0-44.0); Mean Cell Volume 91.1 fl (78-100); Mean Corpuscular Hemoglobin 32.1 pg (26-32); Mean Corpuscular Hgb Concent. 35.3 g/dl (32-36); Mean Platelet Volume 11.3 fl (6-9.5); Monocyte (Absolute #) 0.25 (0.0-1.3); Monocytes % 5.4 % (0.0-12.0); Platelet Count 167 K/mm3 (150-450); Red Cell Distribution Width 12.5 % (11.5-14.0); White Blood Count 4.6 K/mm3 (4.0-10.5)
[2018-06-19 06:53] LABS: ANION GAP 7.9 MEQ/L (5-15); BLOOD UREA NITROGEN 10 mg/dL (9-20); CHLORIDE 112 mmol/L (98-107); Calcium 8.3 mg/dL (8.4-10.2); Carbon Dioxide 25 mmol/L (22-30); Creatinine 1 0.75 mg/dL (0.66-1.25); Glucose 96 mg/dL (74-106); Potassium 3.5 mmol/L (3.5-5.1); SODIUM 141 mmol/L (137-145)
[2018-06-19] MEDS: NovoLOG Insulin SQ SCH ×2 (07:53→11:37)
--- NOTE | 2018-06-19 08:27 | PCM.DS ---
Discharge Summary Date of Admission: 06/17/18 09:06 Admitting Physician: AMI LE Primary Care Provider: NO FAMILY DOCTOR Allergies Allergies No Known Drug Allergies Allergy (Verified 06/17/18 06:30) Hospital Summary - Hospital Course Hospital Course: patient was admitted with DKA, doing well at this time. gap has closed and he had been rehydrated, discussed discharge medication changes - Vitals & Intake/Output Vital Signs: Vital Signs Temperature 97.7 F 06/19/18 06:52 Pulse Rate 63 06/19/18 06:52 Respiratory Rate 12 06/19/18 06:52 Blood Pressure 120/73 06/19/18 06:52 O2 Sat by Pulse Oximetry 97 06/19/18 06:52 Intake & Output: Intake & Output 06/16/18 06/17/18 06/18/18 06/19/18 11:59 11:59 11:59 11:59 Intake Total 6123 5273 Output Total 300 2100 1700 Balance -300 4023 3573 Weight 80.8 kg 86.1 kg 83.7 kg - Lab Result Diagrams: 06/19/18 05:27 06/19/18 05:27 Lab Results-Last 24 Hrs: Accuchecks Date 06/19/18 Date 06/19/18 Date 06/18/18 Date 06/18/18 Date 06/18/18 Date 06/18/18 Time 04:00 Time 00:00 Time 20:00 Time 16:48 Time 12:29 Time 09:32 Accucheck Value: 131 Accucheck Value: 204 Accucheck Value: 211 Accucheck Value: 240 Accucheck Value: 170 Accucheck Value: 213 Lab Results-Last 24 Hours 06/18/18 06/19/18 06/19/18 Range/Units 08:03 05:27 05:27 WBC 4.6 (4.0-10.5) K/mm3 RBC 3.80 L (4.1-5.6) M/mm3 Hgb 12.2 L (12.5-18.0) gm/dl Hct 34.6 L (42-50) % MCV 91.1 (78-100) fl MCH 32.1 H (26-32) pg MCHC 35.3 (32-36) g/dl RDW 12.5 (11.5-14.0) % Plt Count 167 (150-450) K/mm3 MPV 11.3 H (6-9.5) fl Gran % 42.7 (36.0-66.0) % Eos # (Auto) 0.10 (0-0.5) Absolute Lymphs (auto) 2.27 (1.0-4.6) Absolute Monos (auto) 0.25 (0.0-1.3) Lymphocytes % 49.3 H (24.0-44.0) % Monocytes % 5.4 (0.0-12.0) % Eosinophils % 2.2 (0.00-5.0) % Basophils % 0.4 (0.0-0.4) % Absolute Granulocytes 1.96 (1.4-6.9) Basophils # 0.02 (0-0.4) Sodium 136 L 141 (137-145) mmol/L Potassium 4.0 3.5 (3.5-5.1) mmol/L Chloride 107 112 H (98-107) mmol/L Carbon Dioxide 19 L 25 (22-30) mmol/L Anion Gap 13.3 7.9 (5-15) MEQ/L BUN 14 10 (9-20) mg/dL Creatinine 0.85 0.75 (0.66-1.25) mg/dL Estimated GFR > 60.0 > 60.0 ML/MIN Glucose 136 H 96 (74-106) mg/dL Calcium 8.4 8.3 L (8.4-10.2) mg/dL Micro Results-Entire Visit: Microbiology 06/17/18 07:50 Blood Culture - Preliminary Blood NO GROWTH TO DATE 06/17/18 06:10 Blood Culture - Preliminary Blood NO GROWTH TO DATE 06/17/18 07:16 Urine Culture - Final Urine, Void NO GROWTH Accuchecks Date 06/19/18 Date 06/19/18 Date 06/18/18 Date 06/18/18 Date 06/18/18 Date 06/18/18 Time 04:00 Time 00:00 Time 20:00 Time 16:48 Time 12:29 Time 09:32 Accucheck Value: 131 Accucheck Value: 204 Accucheck Value: 211 Accucheck Value: 240 Accucheck Value: 170 Accucheck Value: 213 - Procedures and Test Procedures and Tests throughout Hospitalization: Therapy Orders & Screens 06/17/18 10:56 Respiratory Therapy Assessment DAILY Comment: Diagnosis: DKA 06/17/18 11:02 Smoking Cessation Education ONCE Comment: Diagnosis: DKA Smoking Status: Current every day smoker How long have you smoked: 35 yrs Do you dip or chew tobacco: No Discharge Exam General Appearance: no apparent distress, alert Skin Exam: normal color, warm, dry Eye Exam: PERRL, EOMI, eyes nml inspection Respiratory Exam: normal breath sounds, lungs clear, No respiratory distress Cardiovascular Exam: regular rate/rhythm, normal heart sounds Gastrointestinal/Abdomen Exam: soft, No tenderness, No mass Extremity Exam: normal inspection, normal range of motion Final Diagnosis/Problem List - Final Discharge Diagnosis/Problem (1) Diabetic ketoacidosis Current Visit: Yes Status: Acute (2) Vomiting Current Visit: Yes Status: Acute - Discharge Disposition: Home, Self-Care Condition: Good Prescriptions: New Insulin Lispro [Humalog Kwikpen U-100] 5 unit SQ TIDAC #2 insuln.pen Continue Metformin HCl 1000 mg [Glucophage 1000 MG] 500 mg PO BID Sertraline HCl 50 mg [Zoloft 50 mg Tablet] 50 mg PO HS Changed Insulin Glargine,Hum.rec.anlog [Basaglar Kwikpen U-100] 15 unit SQ BID #2 insuln.pen Discontinued Empagliflozin [Jardiance] 10 mg PO DAILY Instructions: Diabetic Ketoacidosis (DC) Additional Instructions: stop jardiance. increase basaglar to 15 units bid and add humalog 5 units sq with meals three times daily. check blood sugars three times daily and followup in the office in 1 week and bring your meter or a log of blood sugars to review. Follow up with: AMI LE MD [ACTIVE STAFF] - 1 Week
[2018-06-19] MEDS: Lantus Insulin SQ SCH (09:51)
[2018-06-19 11:22] VITALS: BP 119/77; PULSE 68; O2SAT 99
== END 2018-06-19 14:10 | disposition home or self-care (01) ==
LOC: ED 06:06 → MED SURG 09:06 → ICU 15:22 → MED SURG 06-18 14:00
PROVIDERS: ADMIT Family Medicine; ATTEND Family Medicine
DX: E11.10 Type 2 diabetes mellitus with ketoacidosis without coma (principal); Z79.4 Long term (current) use of insulin; F41.8 Other specified anxiety disorders; R11.10 Vomiting, unspecified; Z79.899 Other long term (current) drug therapy
CPT/HCPCS: 36000; 36415; 80048; 80053; 80307; 81001; 82150; 82805; 82962; 83036; 83690; 83735; 84100; 85025; 87040; 87086; 93005; 93041; 94762; 96360; 96361; 96374; 96375; 99285; G0481; 93268; G0378; J1815; J2270; J2405; A9270-GY; G0480

== ENCOUNTER 2018-11-14 17:47 | Emergency (ER) | payer OTHER ==
[2018-11-14] MEDS ORDERED: Sodium Chloride 0.9% 1000 ML 1,000 ML IV STA (18:05)
[2018-11-14] MEDS ORDERED: Hydromorphone 1 mg/ml Ampule IV ONE (18:05)
[2018-11-14] MEDS ORDERED: Zofran 4 MG/2 ML VIAL IV ONE (18:05)
[2018-11-14] MEDS ORDERED: Sodium Chloride 0.9% 1000 ML 1,000 ML ONE (18:12)
[2018-11-14] MEDS ORDERED: Hydromorphone 1 mg/ml Ampule ONE (18:12)
[2018-11-14] MEDS ORDERED: Zofran 4 MG/2 ML VIAL ONE (18:12)
[2018-11-14 18:18] LABS: A-aADO2 23; ABG HEMOGLOBIN 13.7; ABG POTASSIUM 3.7 (3.5-5.1); ABG SITE RIGHT BRACHIAL; ARTERIAL BLD GAS O2 SATURATION 98.3 % (95-100); ARTERIAL BLOOD GAS BASE EXCESS 2.1 (-2.0-2.0); ARTERIAL BLOOD GAS FIO2 21 %; ARTERIAL BLOOD GAS PCO2 35 mmHg (35-45); ARTERIAL BLOOD GAS PO2 83 mmHg (75-100); ARTERIAL BLOOD GAS pH 7.47 (7.35-7.45); CARBOXYHEMOGLOBIN 6.4 % THgb (0.0-6.9); HCO3- 25.5 (22-28); HGB O2 SAT 90.7 g/dF (94-100); Methhemoglobin 1.3 % (1.4-1.5); paO2 pAO1 0.78
[2018-11-14 18:35] LABS: BASOPHIL % 0.6 % (0.0-0.4); Basophil (Absolute #) 0.04 (0-0.4); Eosinophil % 2.5 % (0.00-5.0); Eosinophil (Absolute #) 0.16 (0-0.5); Granulocyte Absolute (ANC) 3.14 (1.4-6.9); Hematocrit 43.2 % (42-50); Hemoglobin 14.4 gm/dl (12.5-18.0); Lymphocyte (Absolute #) 2.56 (1.0-4.6); Lymphocytes % 40.8 % (24.0-44.0); Mean Cell Volume 95.6 fl (78-100); Mean Corpuscular Hemoglobin 31.9 pg (26-32); Mean Corpuscular Hgb Concent. 33.3 g/dl (32-36); Mean Platelet Volume 11.3 fl (6-9.5); Monocyte (Absolute #) 0.38 (0.0-1.3); Monocytes % 6.1 % (0.0-12.0); Platelet Count 213 K/mm3 (150-450); Red Blood Count 4.52 M/mm3 (4.1-5.6); Red Cell Distribution Width 12.3 % (11.5-14.0); White Blood Count 6.3 K/mm3 (4.0-10.5)
[2018-11-14 18:45] LABS: ALBUMIN 4.7 g/dL (3.5-5.0); ALKALINE PHOSPHATASE 104 U/L (38-126); AMYLASE 76 U/L (30-110); ANION GAP 13.1 MEQ/L (5-15); BLOOD UREA NITROGEN 20 mg/dL (9-20); CHLORIDE 102 mmol/L (98-107); Calcium 9.6 mg/dL (8.4-10.2); Carbon Dioxide 29 mmol/L (22-30); Glucose 71 mg/dL (74-106); LIPASE 121 U/L (23-300); Potassium 3.9 mmol/L (3.5-5.1); SGOT/AST 23 U/L (17-59); SGPT/ALT 19 U/L (0-50); SODIUM 140 mmol/L (137-145); Total Protein 8.3 g/dL (6.3-8.2)
[2018-11-14] MEDS ORDERED: Carafate 1 GM PO ONE ×2 (18:54→18:57)
[2018-11-14] MEDS ORDERED: Pepcid 20 MG VIAL IV ONE ×2 (18:54→18:57)
--- NOTE | 2018-11-14 19:08 | ERPHSYRPT ---
- History of Present Illness Time Seen by Provider: 11/14/18 18:00 Historian: patient, family Exam Limitations: no limitations Patient Subjective Stated Complaint: pt here for abd pain today with nausea, headache, he states hes bs hav ebeen running high for 3 days now, pt is getting a new a pump friday, but blood sugar is 84 right now, he has a pump that reads bs Triage Nursing Assessment: pt alert, resp easy, skin w/d/p. abd soft, no edema Physician History: patient with Abd pain with N&V started within past 1-2 hrs; now with severe frontal AYALA; severe DM type 1 - had DKA and seizure last May; working on getting him on an insulin pump; BS was 400 an hr ago now pump showing 79; no fever or chills; no prior episodes like this; no cough; no fever; no diarrhea; Timing/Duration: today, hour(s) (1-2 onset), sudden, worse Activities at Onset: rest Quality: cramping Abdominal Pain Onset Location: epigastric, generalized abdomen Pain Radiation: no radiation Severity of Pain-Max: severe Severity of Pain-Current: moderate Modifying Factors: Improves With: vomiting Associated Symptoms: headache, heartburn, nausea, vomiting Previous symptoms: no prior history Allergies/Adverse Reactions: No Known Drug Allergies Allergy (Verified 11/14/18 17:58) Home Medications: Sertraline HCl 50 mg [Zoloft 50 mg Tablet] 150 mg PO HS 06/17/18 [History] Insulin Degludec [Tresiba Flextouch U-100] 18 units DAILY 11/14/18 [History] Insulin Lispro [Admelog] 9 units TID 11/14/18 [History] Hx Tetanus, Diphtheria Vaccination/Date Given: Yes Hx Influenza Vaccination/Date Given: No Hx Pneumococcal Vaccination/Date Given: No Immunizations Up to Date: Yes - Review of Systems Constitutional: No Symptoms Eyes: Photophobia, No Eye Pain, No Eye Redness Ears, Nose, & Throat: No Symptoms Respiratory: No Cough, No Dyspnea, No Wheezing Cardiac: No Chest Pain, No Palpitations, No Syncope Abdominal/Gastrointestinal: Abdominal Pain, Nausea, Vomiting, No Diarrhea, No Constipation, No Hematemesis, No Hematochezia, No Melena Genitourinary Symptoms: No Symptoms Musculoskeletal: No Symptoms Skin: No Symptoms Neurological: Headache, No Dizziness, No Seizure, No Vertigo Psychological: No Symptoms Endocrine: No Symptoms Hematologic/Lymphatic: No Symptoms Immunological/Allergic: No Symptoms - Past Medical History Pertinent Past Medical History: Yes Neurological History: No Pertinent History ENT History: No Pertinent History Cardiac History: No Pertinent History Respiratory History: No Pertinent History Endocrine Medical History: Diabetes Type II Musculoskeletal History: No Pertinent History GI Medical History: No Pertinent History History: No Pertinent History Psycho-Social History: Anxiety Male Reproductive Disorders: No Pertinent History - Past Surgical History Past Surgical History: No - Social History Smoking Status: Current every day smoker How long have you smoked: 35 yrs Exposure to second hand smoke: Yes Alcohol Use: None Drug Use: none Patient Lives Alone: No Significant Family History: diabetes - Nursing Vital Signs Nursing Vital Signs: Initial Vital Signs Temperature 98.4 F 11/14/18 17:53 Pulse Rate 104 H 11/14/18 17:53 Respiratory Rate 16 11/14/18 17:53 Blood Pressure 196/110 11/14/18 17:53 O2 Sat by Pulse Oximetry 94 L 11/14/18 17:53 Pain Scale Pain Intensity 5 - Physical Exam General Appearance: severe distress, alert, thin Eye Exam: PERRL/EOMI, photophobia Ears, Nose, Throat Exam: normal ENT inspection, TMs normal, pharynx normal, moist mucous membranes Neck Exam: normal inspection, non-tender, supple, full range of motion, No meningismus, No JVD Respiratory Exam: normal breath sounds, lungs clear, airway intact, No chest tenderness, No respiratory distress, No crackles/rales, No rhonchi, No wheezing Cardiovascular Exam: regular rate/rhythm, normal heart sounds, normal peripheral pulses, tachycardia, capillary refill <2 sec, No murmur Gastrointestinal/Abdomen Exam: soft, No normal bowel sounds (deminished but present), No tenderness, No distention, No guarding, No rebound, No organomegaly Rectal Exam: deferred Back Exam: normal inspection, normal range of motion, No CVA tenderness, No vertebral tenderness, No rash Extremity Exam: normal inspection, normal range of motion, No pelvis stable, No chase's sign, No pedal edema Neurologic Exam: alert, oriented x 3, cooperative, roll wrapper II-XII nml as tested, normal mood/affect, nml station & gait Skin Exam: normal color, warm, dry, No rash, No petechiae, No cyanosis SpO2 Interpretation: normal SpO2: 99 O2 Delivery: Room Air - Course Nursing assessment & vital signs reviewed: Yes Ordered Tests: Active Orders 24 hr Category Date Time Status Code Status Order ROUTINE Care 11/14/18 19:42 Active IV Insertion STAT Care 11/14/18 18:05 Active Re-Check Vital Signs STAT Care 11/14/18 18:05 Active AMYLASE Stat Lab 11/14/18 18:29 Completed ARTERIAL BLOOD GASES Stat Lab 11/14/18 18:14 Completed CBC W DIFF Stat Lab 11/14/18 18:29 Completed CMP Stat Lab 11/14/18 18:29 Completed LIPASE Stat Lab 11/14/18 18:29 Completed Lactic Acid Stat Lab 11/14/18 18:14 Completed MAGNESIUM Stat Lab 11/14/18 18:29 Completed Medication Summary Discontinued Medications Generic Name Dose Route Start Last Admin Trade Name Freq PRN Reason Stop Dose Admin Enoxaparin Sodium 80 mg 11/14/18 19:40 11/14/18 19:51 Enoxaparin Sodium 1 mg/kg (80 mg) 11/14/18 19:41 Not Given SQ STAT ONE Famotidine 20 mg 11/14/18 18:54 11/14/18 18:59 Pepcid 20 Mg Vial IV 11/14/18 18:55 20 mg STAT ONE Administration Famotidine Confirm 11/14/18 18:57 Pepcid 20 Mg Vial Administered 11/14/18 18:58 Dose 20 mg IV .STK-MED ONE Hydromorphone HCl 0.5 mg 11/14/18 18:05 11/14/18 18:19 Hydromorphone 1 Mg/Ml Ampule IV 11/14/18 18:06 0.5 mg STAT ONE Administration Hydromorphone HCl Confirm 11/14/18 18:12 Hydromorphone 1 Mg/Ml Ampule Administered 11/14/18 18:13 Dose 1 mg .ROUTE .STK-MED ONE Sodium Chloride 1,000 mls @ 999 mls/hr 11/14/18 18:05 11/14/18 19:20 Sodium Chloride 0.9% 1000 Ml IV 11/14/18 19:05 Infused .Q1H1M STA Infusion Sodium Chloride Confirm 11/14/18 18:12 Sodium Chloride 0.9% 1000 Ml Administered 11/14/18 18:13 Dose 1,000 mls @ ud .ROUTE .STK-MED ONE Ondansetron HCl 4 mg 11/14/18 18:05 11/14/18 18:19 Zofran 4 Mg/2 Ml Vial IV 11/14/18 18:06 4 mg STAT ONE Administration Ondansetron HCl Confirm 11/14/18 18:12 Zofran 4 Mg/2 Ml Vial Administered 11/14/18 18:13 Dose 4 mg .ROUTE .STK-MED ONE Sucralfate 1 g 11/14/18 18:54 11/14/18 18:59 Carafate 1 Gm PO 11/14/18 18:55 1 g STAT ONE Administration Sucralfate Confirm 11/14/18 18:57 Carafate 1 Gm Administered 11/14/18 18:58 Dose 1 g PO .STK-MED ONE Lab/Rad Data: Laboratory Result Diagrams 11/14/18 18:29 11/14/18 18:29 Laboratory Results 11/14/18 11/14/18 11/14/18 Range/Units 18:29 18:29 18:29 WBC 6.3 (4.0-10.5) K/mm3 RBC 4.52 (4.1-5.6) M/mm3 Hgb 14.4 (12.5-18.0) gm/dl Hct 43.2 (42-50) % MCV 95.6 (78-100) fl MCH 31.9 (26-32) pg MCHC 33.3 (32-36) g/dl RDW 12.3 (11.5-14.0) % Plt Count 213 (150-450) K/mm3 MPV 11.3 H (6-9.5) fl Gran % 50.0 (36.0-66.0) % Eos # (Auto) 0.16 (0-0.5) Absolute Lymphs (auto) 2.56 (1.0-4.6) Absolute Monos (auto) 0.38 (0.0-1.3) Lymphocytes % 40.8 (24.0-44.0) % Monocytes % 6.1 (0.0-12.0) % Eosinophils % 2.5 (0.00-5.0) % Basophils % 0.6 (0.0-0.4) % Absolute Granulocytes 3.14 (1.4-6.9) Basophils # 0.04 (0-0.4) Puncture Site pCO2 (35-45) mmHg pO2 (75-100) mmHg Base Excess (-2.0-2.0) O2 Saturation (94-100) g/dF ABG pH (7.35-7.45) ABG HCO3 (22-28) ABG O2 Sat (Measured) (95-100) % Von Test A-a Gradient a/A Ratio Hemoglobin Carboxyhemoglobin (0.0-6.9) % THgb Methemoglobin (1.4-1.5) % Potassium 3.9 (3.5-5.1) Temperature C POC O2 Flow Rate % Sodium 140 (137-145) mmol/L Chloride 102 (98-107) mmol/L Carbon Dioxide 29 (22-30) mmol/L Anion Gap 13.1 (5-15) MEQ/L BUN 20 (9-20) mg/dL Creatinine 1.00 (0.66-1.25) mg/dL Estimated GFR > 60.0 ML/MIN Glucose 71 L (74-106) mg/dL Lactic Acid (0.4-2.0) Calcium 9.6 (8.4-10.2) mg/dL Magnesium 2.0 (1.6-2.3) mg/dL Total Bilirubin 0.40 (0.2-1.3) mg/dL AST 23 (17-59) U/L ALT 19 (0-50) U/L Alkaline Phosphatase 104 (38-126) U/L Serum Total Protein 8.3 H (6.3-8.2) g/dL Albumin 4.7 (3.5-5.0) g/dL Amylase 76 (30-110) U/L Lipase 121 (23-300) U/L 11/14/18 11/14/18 Range/Units 18:14 18:14 WBC (4.0-10.5) K/mm3 RBC (4.1-5.6) M/mm3 Hgb (12.5-18.0) gm/dl Hct (42-50) % MCV (78-100) fl MCH (26-32) pg MCHC (32-36) g/dl RDW (11.5-14.0) % Plt Count (150-450) K/mm3 MPV (6-9.5) fl Gran % (36.0-66.0) % Eos # (Auto) (0-0.5) Absolute Lymphs (auto) (1.0-4.6) Absolute Monos (auto) (0.0-1.3) Lymphocytes % (24.0-44.0) % Monocytes % (0.0-12.0) % Eosinophils % (0.00-5.0) % Basophils % (0.0-0.4) % Absolute Granulocytes (1.4-6.9) Basophils # (0-0.4) Puncture Site RIGHT BRACHIAL pCO2 35 (35-45) mmHg pO2 83 (75-100) mmHg Base Excess 2.1 H (-2.0-2.0) O2 Saturation 90.7 L (94-100) g/dF ABG pH 7.47 H (7.35-7.45) ABG HCO3 25.5 (22-28) ABG O2 Sat (Measured) 98.3 (95-100) % Von Test NOT APPLICABLE A-a Gradient 23 a/A Ratio 0.78 Hemoglobin 13.7 Carboxyhemoglobin 6.4 (0.0-6.9) % THgb Methemoglobin 1.3 L (1.4-1.5) % Potassium 3.7 (3.5-5.1) Temperature 37.0 C POC O2 Flow Rate 21 % Sodium (137-145) mmol/L Chloride (98-107) mmol/L Carbon Dioxide (22-30) mmol/L Anion Gap (5-15) MEQ/L BUN (9-20) mg/dL Creatinine (0.66-1.25) mg/dL Estimated GFR ML/MIN Glucose (74-106) mg/dL Lactic Acid 0.8 (0.4-2.0) Calcium (8.4-10.2) mg/dL Magnesium (1.6-2.3) mg/dL Total Bilirubin (0.2-1.3) mg/dL AST (17-59) U/L ALT (0-50) U/L Alkaline Phosphatase (38-126) U/L Serum Total Protein (6.3-8.2) g/dL Albumin (3.5-5.0) g/dL Amylase (30-110) U/L Lipase (23-300) U/L - Progress Progress: improved (after meds and Iv fluid), re-examined (after meds) Progress Note: 11/14/18 19:11 IV started, meds given ABG checked; labs pending; accu check 79; ABG ph= 7.47; pCO2 35; Po2 = 83 HCO3- 25.5Carboxy Hb = 6.4 = heavy smoker by hx 11/14/18 19:13 ABG showed no KEto acidosis; Mg 2.0CMP BS 71; renal fx ok; lytes ok mariza lip ok; CBC wnl;lactate 0.8 wnl after meds and IV fluids AYALA down to 4 from ; N&V resolved; abd pain now mild epig only; will give carafate and recheck; recheck BS 84; will monitor and recheck 11/14/18 19:15 VS improved 11/14/18 20:12 recheck at bedside- BS dropped to 64 - gave OJ; rechecked and improved to90 ; feeling much better; NO AYALA; No N&V; no abd pain; reviewed results - instructions given Counseled pt/family regarding: lab results, diagnosis, need for follow-up, smoking cessation - Departure Time of Disposition: 20:13 Departure Disposition: Home Clinical Impression: Diabetes type 1, uncontrolled, Headache, Abdominal pain of unknown cause, Vomiting Condition: Stable Critical Care Time: No Referrals: AMI LE MD [Primary Care Provider] - Instructions: Acute Abdomen (Belly Pain), Adult (DC), Type 1 Diabetes Additional Instructions: WATCH BLOOD SUGAR; FOLLOW UP PNEUMATIC TUBE FITTER Follow-up with family doctor as directed. Call for appointment. Return if any problems. If you smoke please stop. Call or follow up with your family doctor for assistance if you need it to stop. Please wear your seatbelt when driving. Have a nice day. Thank you for allowing us to participate in your care today. :o) Dr Jesus Montes De Oca
[2018-11-14] MEDS ORDERED: ENOXAPARIN SODIUM SQ ONE (19:40)
[2018-11-14 21:12] VITALS: BP 124/74; PULSE 87; O2SAT 98
== END 2018-11-14 21:12 | disposition home or self-care (01) ==
LOC: ED 17:47
DX: E10.10 Type 1 diabetes mellitus with ketoacidosis without coma (principal); R51 Headache; R11.2 Nausea with vomiting, unspecified; Z79.899 Other long term (current) drug therapy; E11.9 Type 2 diabetes mellitus without complications; F41.9 Anxiety disorder, unspecified; R12 Heartburn
CPT/HCPCS: 36415; 36600; 80053; 82150; 82375; 82803; 83605; 83690; 83735; 85025; 96360; 96374; 96375; 99284; J1170; J2405; A9270-GY

== ENCOUNTER 2019-05-09 09:25 | Emergency (ER) | payer OTHER ==
[2019-05-09] MEDS ORDERED: Sodium Chloride 0.9% 1000 ML 1,000 ML IV STA ×2 (09:50→11:10)
[2019-05-09] MEDS ORDERED: Zofran 4 MG/2 ML VIAL IV ONE (09:55)
[2019-05-09] MEDS ORDERED: Sodium Chloride 0.9% 1000 ML 1,000 ML ONE ×2 (09:56→11:04)
[2019-05-09 09:57] LABS: BASOPHIL % 0.3 % (0.0-0.4); Basophil (Absolute #) 0.03 (0-0.4); Eosinophil % 1.6 % (0.00-5.0); Eosinophil (Absolute #) 0.16 (0-0.5); Granulocyte Absolute (ANC) 8.09 (1.4-6.9); Granulocytes % 80.9 % (36.0-66.0); Hematocrit 46.7 % (42-50); Hemoglobin 15.9 gm/dl (12.5-18.0); Lymphocyte (Absolute #) 1.34 (1.0-4.6); Lymphocytes % 13.4 % (24.0-44.0); Mean Platelet Volume 10.9 fl (6-9.5); Monocyte (Absolute #) 0.38 (0.0-1.3); Monocytes % 3.8 % (0.0-12.0); Platelet Count 198 K/mm3 (150-450); Red Blood Count 4.97 M/mm3 (4.1-5.6); Red Cell Distribution Width 12.5 % (11.5-14.0)
[2019-05-09] MEDS ORDERED: Zofran 4 MG/2 ML VIAL ONE (09:58)
[2019-05-09 10:01] LABS: ALBUMIN 4.5 g/dL (3.5-5.0); ALKALINE PHOSPHATASE 162 U/L (38-126); ANION GAP 17.6 MEQ/L (5-15); BLOOD UREA NITROGEN 17 mg/dL (9-20); CHLORIDE 101 mmol/L (98-107); Calcium 9.8 mg/dL (8.4-10.2); Carbon Dioxide 23 mmol/L (22-30); Creatinine 1 0.97 mg/dL (0.66-1.25); Glucose 397 mg/dL (74-106); Potassium 4.6 mmol/L (3.5-5.1); SGOT/AST 25 U/L (17-59); SGPT/ALT 16 U/L (0-50); SODIUM 137 mmol/L (137-145); Total Protein 8.1 g/dL (6.3-8.2)
--- NOTE | 2019-05-09 10:02 | ERPHSYRPT ---
- History of Present Illness Time Seen by Provider: 05/09/19 09:45 Source: patient, family (Spouse) Exam Limitations: clinical condition (Somulent; easily arrousable) Patient Subjective Stated Complaint: states has felt bad since last night with vomiting and high blood sugar. Triage Nursing Assessment: to room per w/c. skin w/d, color normal, resp nonlabored. patient appears drowsy but awakens easily. a/o times three. insulin pump on at this time. Physician History: Spouse states that they have been camping several weeks - yesterday nothing unusual. Last night nausea and vomiting; blood sugar high and having trouble with insulin pump. Spouse concerned re ketones. Severity: moderate Associated Symptoms: nausea, vomiting, abdominal pain, malaise Allergies/Adverse Reactions: No Known Drug Allergies Allergy (Verified 05/09/19 09:37) Home Medications: Sertraline HCl 50 mg [Zoloft 50 mg Tablet] 150 mg PO HS 06/17/18 [History] Insulin Lispro [Admelog] 9 units IJ TID 11/14/18 [History] Donepezil HCl 10 mg PO HS 05/09/19 [History] Hx Tetanus, Diphtheria Vaccination/Date Given: No Hx Influenza Vaccination/Date Given: No Hx Pneumococcal Vaccination/Date Given: No - Review of Systems Constitutional: Malaise Eyes: No Symptoms Ears, Nose, & Throat: No Symptoms Respiratory: No Symptoms Cardiac: No Symptoms Abdominal/Gastrointestinal: Nausea, Vomiting, No Diarrhea All Other Systems: Reviewed and Negative - Past Medical History Pertinent Past Medical History: Yes Neurological History: No Pertinent History ENT History: No Pertinent History Cardiac History: No Pertinent History Respiratory History: No Pertinent History Endocrine Medical History: Diabetes Type II Musculoskeletal History: No Pertinent History GI Medical History: No Pertinent History History: No Pertinent History Psycho-Social History: Anxiety Male Reproductive Disorders: No Pertinent History - Past Surgical History Past Surgical History: No - Social History Smoking Status: Current every day smoker How long have you smoked: 30 Exposure to second hand smoke: Yes Alcohol Use: None Drug Use: none Patient Lives Alone: No Significant Family History: diabetes - Nursing Vital Signs Nursing Vital Signs: Initial Vital Signs Temperature 97.8 F 05/09/19 09:31 Pulse Rate 75 05/09/19 09:31 Respiratory Rate 16 05/09/19 09:31 Blood Pressure 117/72 05/09/19 09:31 O2 Sat by Pulse Oximetry 97 05/09/19 09:31 Pain Scale Pain Intensity 0 - Physical Exam General Appearance: lethargy (somulent; easily arrousable) Eye Exam: PERRL/EOMI Ears, Nose, Throat Exam: normal ENT inspection, pharynx normal Neck Exam: normal inspection Respiratory Exam: normal breath sounds, lungs clear, airway intact Cardiovascular Exam: regular rate/rhythm, normal heart sounds, normal peripheral pulses, No edema Gastrointestinal/Abdomen Exam: soft, normal bowel sounds, tenderness Extremity Exam: normal inspection, normal range of motion SpO2 Interpretation: normal SpO2: 97 O2 Delivery: Room Air - Course Nursing assessment & vital signs reviewed: Yes Ordered Tests: Active Orders 24 hr Category Date Time Status ABDOMEN AND PELVIS W CONTRAST [CT] Stat Exams 05/09/19 11:32 Taken CBC W DIFF Stat Lab 05/09/19 09:50 Completed CMP Stat Lab 05/09/19 09:50 Completed Lactic Acid Stat Lab 05/09/19 09:50 Completed UA W/RFX UR CULTURE Stat Lab 05/09/19 10:57 Completed Medication Summary Discontinued Medications Generic Name Dose Route Start Last Admin Trade Name Freq PRN Reason Stop Dose Admin Sodium Chloride 1,000 mls @ 999 mls/hr 05/09/19 09:50 05/09/19 11:03 Sodium Chloride 0.9% 1000 Ml IV 05/09/19 10:50 Infused .Q1H1M STA Infusion Sodium Chloride Confirm 05/09/19 09:56 Sodium Chloride 0.9% 1000 Ml Administered 05/09/19 09:57 Dose 1,000 mls @ ud .ROUTE .STK-MED ONE Sodium Chloride Confirm 05/09/19 11:04 Sodium Chloride 0.9% 1000 Ml Administered 05/09/19 11:05 Dose 1,000 mls @ ud .ROUTE .STK-MED ONE Sodium Chloride 1,000 mls @ 999 mls/hr 05/09/19 11:10 05/09/19 12:50 Sodium Chloride 0.9% 1000 Ml IV 05/09/19 12:10 Infused .Q1H1M STA Infusion Ondansetron HCl 4 mg 05/09/19 09:55 05/09/19 09:59 Zofran 4 Mg/2 Ml Vial IV 08/18/19 09:56 4 mg STAT ONE Administration Ondansetron HCl Confirm 05/09/19 09:58 Zofran 4 Mg/2 Ml Vial Administered 05/09/19 09:59 Dose 4 mg .ROUTE .STK-MED ONE Lab/Rad Data: Laboratory Result Diagrams 05/09/19 09:50 05/09/19 09:50 Laboratory Results 05/09/19 05/09/19 05/09/19 Range/Units 10:57 09:50 09:50 WBC (4.0-10.5) K/mm3 RBC (4.1-5.6) M/mm3 Hgb (12.5-18.0) gm/dl Hct (42-50) % MCV (78-100) fl MCH (26-32) pg MCHC (32-36) g/dl RDW (11.5-14.0) % Plt Count (150-450) K/mm3 MPV (6-9.5) fl Gran % (36.0-66.0) % Eos # (Auto) (0-0.5) Absolute Lymphs (auto) (1.0-4.6) Absolute Monos (auto) (0.0-1.3) Lymphocytes % (24.0-44.0) % Monocytes % (0.0-12.0) % Eosinophils % (0.00-5.0) % Basophils % (0.0-0.4) % Absolute Granulocytes (1.4-6.9) Basophils # (0-0.4) Sodium 137 (137-145) mmol/L Potassium 4.6 (3.5-5.1) mmol/L Chloride 101 (98-107) mmol/L Carbon Dioxide 23 (22-30) mmol/L Anion Gap 17.6 H (5-15) MEQ/L BUN 17 (9-20) mg/dL Creatinine 0.97 (0.66-1.25) mg/dL Estimated GFR > 60.0 ML/MIN Glucose 397 H (74-106) mg/dL Lactic Acid 1.7 (0.4-2.0) Calcium 9.8 (8.4-10.2) mg/dL Total Bilirubin 1.10 (0.2-1.3) mg/dL AST 25 (17-59) U/L ALT 16 (0-50) U/L Alkaline Phosphatase 162 H (38-126) U/L Serum Total Protein 8.1 (6.3-8.2) g/dL Albumin 4.5 (3.5-5.0) g/dL Urine Color STRAW (YELLOW) Urine Appearance CLEAR (CLEAR) Urine pH 5.0 (5-6) Ur Specific Ector 1.021 (1.005-1.025) Urine Protein NEGATIVE (Negative) Urine Ketones SMALL (NEGATIVE) Urine Blood NEGATIVE (0-5) Diomedes/ul Urine Nitrite NEGATIVE (NEGATIVE) Urine Bilirubin NEGATIVE (NEGATIVE) Urine Urobilinogen NEGATIVE (0-1) mg/dL Ur Leukocyte Esterase NEGATIVE (NEGATIVE) Urine WBC (Auto) NONE (0-5) /HPF Urine RBC (Auto) NONE (0-2) /HPF U Epithel Cells (Auto) NONE (FEW) /HPF Urine Bacteria (Auto) NONE (NEGATIVE) /HPF Urine Culture Reflexed NO (NO) Urine Glucose >=500 (NEGATIVE) mg/dL 05/09/19 Range/Units 09:50 WBC 10.0 (4.0-10.5) K/mm3 RBC 4.97 (4.1-5.6) M/mm3 Hgb 15.9 (12.5-18.0) gm/dl Hct 46.7 (42-50) % MCV 94.0 (78-100) fl MCH 32.0 (26-32) pg MCHC 34.0 (32-36) g/dl RDW 12.5 (11.5-14.0) % Plt Count 198 (150-450) K/mm3 MPV 10.9 H (6-9.5) fl Gran % 80.9 H (36.0-66.0) % Eos # (Auto) 0.16 (0-0.5) Absolute Lymphs (auto) 1.34 (1.0-4.6) Absolute Monos (auto) 0.38 (0.0-1.3) Lymphocytes % 13.4 L (24.0-44.0) % Monocytes % 3.8 (0.0-12.0) % Eosinophils % 1.6 (0.00-5.0) % Basophils % 0.3 (0.0-0.4) % Absolute Granulocytes 8.09 H (1.4-6.9) Basophils # 0.03 (0-0.4) Sodium (137-145) mmol/L Potassium (3.5-5.1) mmol/L Chloride (98-107) mmol/L Carbon Dioxide (22-30) mmol/L Anion Gap (5-15) MEQ/L BUN (9-20) mg/dL Creatinine (0.66-1.25) mg/dL Estimated GFR ML/MIN Glucose (74-106) mg/dL Lactic Acid (0.4-2.0) Calcium (8.4-10.2) mg/dL Total Bilirubin (0.2-1.3) mg/dL AST (17-59) U/L ALT (0-50) U/L Alkaline Phosphatase (38-126) U/L Serum Total Protein (6.3-8.2) g/dL Albumin (3.5-5.0) g/dL Urine Color (YELLOW) Urine Appearance (CLEAR) Urine pH (5-6) Ur Specific Ector (1.005-1.025) Urine Protein (Negative) Urine Ketones (NEGATIVE) Urine Blood (0-5) Diomedes/ul Urine Nitrite (NEGATIVE) Urine Bilirubin (NEGATIVE) Urine Urobilinogen (0-1) mg/dL Ur Leukocyte Esterase (NEGATIVE) Urine WBC (Auto) (0-5) /HPF Urine RBC (Auto) (0-2) /HPF U Epithel Cells (Auto) (FEW) /HPF Urine Bacteria (Auto) (NEGATIVE) /HPF Urine Culture Reflexed (NO) Urine Glucose (NEGATIVE) mg/dL - Progress Progress: improved Progress Note: 05/09/19 13:05 Advised the patient andrew the CT showed some changes in the gall bladder wall suggestive of non radio opaque stones or sludge. Suggested primary care for ordering an outpatient Ultra Sound. Also noted was some question of incomplete filling of the colon or a possible colitis. This was of course consistent with his presentation of nausea, vomiting and diarrhea onset last night. - Departure Departure Disposition: Home Clinical Impression: Colitis Clinical Impression: (Ruled Out): Bladder wall thickening Condition: Stable Critical Care Time: Yes Critical Care Time(excluding separately billable procedures): Critical 30-74 mins Referrals: AMI LE MD [Primary Care Provider] - Additional Instructions: Continue to monitor blood sugar; use Zofran for nausea. Keep well hydrated with clear liquids - small amounts over the next 12 hours. Call primary care tomorrow and let them know how you are doing. Advise that a Gall bladder ultrasound was suggested for possible stones not showing on CT or sludge. Prescriptions: Ondansetron ODT 4 MG [Zofran Odt 4 mg] 4 mg PO STAT #10 tab.rapdis
[2019-05-09 11:02] LABS: Appearance CLEAR (CLEAR); Bilirubin NEGATIVE (NEGATIVE); Blood NEGATIVE Ery/ul (0-5); Glucose >=500 mg/dL (NEGATIVE); Ketones SMALL (NEGATIVE); Leukocyte Esterase NEGATIVE (NEGATIVE); Nitrite NEGATIVE (NEGATIVE); Protein,Urine Dip NEGATIVE (Negative); Specific Gravity 1.021 (1.005-1.025); Urobilinogen NEGATIVE mg/dL (0-1)
[2019-05-09 12:52] VITALS: O2SAT 97
[2019-05-09 12:56] VITALS: BP 91/55; PULSE 77
--- NOTE | 2019-05-09 20:00 | XRAY ---
Indication: Vomiting. Dry hives. Diabetes. High blood pressure. Multiple contiguous axial images obtained through the abdomen and pelvis using 80 cc of Isovue-370 contrast only. Comparison: None Lung bases demonstrates mild bibasilar dependent atelectasis. No infiltrate or effusion. Heart is not enlarged. Noncontrasted stomach and bowel loops appear nonobstructed. Normal appendix. No free fluid/air. 3 left renal exophytic cysts, largest 1.6 cm. Remaining liver, gallbladder, pancreas, spleen, adrenal glands, kidneys, ureters, bladder, and aorta appear unremarkable. No pathologic retroperitoneal lymphadenopathy. Osseous structures intact with mild lumbosacral junction degenerative changes. Impression: 1. Left renal cysts. 2. Remaining CT abdomen/pelvis with contrast exam is negative. Comment: Preliminary interpretation was made by [facility]. No critical discrepancy. CTDI 17.35
== END 2019-05-09 13:28 | disposition home or self-care (01) ==
LOC: ED 09:25
DX: K52.9 Noninfective gastroenteritis and colitis, unspecified (principal)
CPT/HCPCS: 36000; 36415; 74177; 80053; 81001; 83605; 85025; 96360; 96361; 96374; 99284; J2405

== ENCOUNTER 2019-05-10 10:29 | Emergency (ER) | payer OTHER ==
[2019-05-10] MEDS ORDERED: Sodium Chloride 0.9% 1000 ML 1,000 ML IV STA (10:38)
--- NOTE | 2019-05-10 10:47 | ERPHSYRPT ---
- History of Present Illness Time Seen by Provider: 05/10/19 10:31 Source: patient Exam Limitations: no limitations Patient Subjective Stated Complaint: pt here for a sorethroat, high blood sugar and right side numbness. numbness started at 0500 toay. he was seen yesterday for high blood sugar,was given fluids and sent home. Triage Nursing Assessment: pt arrived per wc alert, resp easy, skin w/d/p. moves all ext well, no edema.pt has insulin pump in place, and has given self extra insulin Physician History: Pt was seen here yesterday after vomiting and c/o elevated blood glucose, he was given IV saline boluses, CT abdomen revealed possible biliary sludge and discharged to continue oral hydration and follow up with his physician for gallbladder US. He started c/o sore throat, right arm since 5:30 AM today, his blood glucose was 339, he has been on Insulin pump with Lispro.He denies other complaint, no focal weakness, visual changes, no headaches, slurred speech , difficulty walking, nausea, vomiting, chest pain, fever, diarrhea other complaints, than sore throat. Timing/Duration: day(s) (2) Severity: mild Modifying Factors: Improves With: nothing Associated Symptoms: other (sore throat, right sided numbness) Allergies/Adverse Reactions: No Known Drug Allergies Allergy (Verified 05/10/19 10:37) Home Medications: Sertraline HCl 50 mg [Zoloft 50 mg Tablet] 150 mg PO HS 06/17/18 [History] Insulin Lispro [Admelog] 9 units IJ TID 11/14/18 [History] Donepezil HCl 10 mg PO HS 05/09/19 [History] Hx Tetanus, Diphtheria Vaccination/Date Given: No Hx Influenza Vaccination/Date Given: No Hx Pneumococcal Vaccination/Date Given: No Immunizations Up to Date: Yes - Review of Systems Constitutional: No Symptoms Eyes: No Symptoms Ears, Nose, & Throat: Throat Pain, No Throat Swelling, No Hoarse Respiratory: No Symptoms Cardiac: No Symptoms Abdominal/Gastrointestinal: No Symptoms Genitourinary Symptoms: No Symptoms Musculoskeletal: No Symptoms Skin: No Symptoms Neurological: Parasthesia, Other (right arm numbness) Endocrine: Other (high glucose) All Other Systems: Reviewed and Negative - Past Medical History Pertinent Past Medical History: Yes Neurological History: No Pertinent History ENT History: No Pertinent History Cardiac History: No Pertinent History Respiratory History: No Pertinent History Endocrine Medical History: Diabetes Type I Musculoskeletal History: No Pertinent History GI Medical History: No Pertinent History History: No Pertinent History Psycho-Social History: Anxiety Male Reproductive Disorders: No Pertinent History - Past Surgical History Past Surgical History: No - Social History Smoking Status: Current every day smoker How long have you smoked: 30 Exposure to second hand smoke: Yes Alcohol Use: None Drug Use: none Patient Lives Alone: No Significant Family History: diabetes - Nursing Vital Signs Nursing Vital Signs: Initial Vital Signs Temperature 98.0 F 05/10/19 10:30 Pulse Rate 66 05/10/19 10:30 Respiratory Rate 16 05/10/19 10:30 Blood Pressure 103/67 05/10/19 10:30 O2 Sat by Pulse Oximetry 97 05/10/19 10:30 Pain Scale Pain Intensity 5 - Physical Exam General Appearance: no apparent distress Eye Exam: PERRL/EOMI, eyes nml inspection Ears, Nose, Throat Exam: normal ENT inspection, pharynx normal, moist mucous membranes Neck Exam: normal inspection, non-tender, supple, No carotid bruit, No JVD Respiratory Exam: normal breath sounds, lungs clear, airway intact Cardiovascular Exam: regular rate/rhythm, normal heart sounds, normal peripheral pulses, No murmur Gastrointestinal/Abdomen Exam: soft, normal bowel sounds, tenderness (mild LUQ) , other (Insulin pump in RLQ skin), No distention, No mass, No guarding, No ecchymosis, No rebound, No hernia Back Exam: normal inspection, No CVA tenderness, No vertebral tenderness Extremity Exam: normal inspection, No calf tenderness, No chase's sign, No pedal edema Neurologic Exam: alert, oriented x 3, cooperative, normal mood/affect, No motor deficits Skin Exam: normal color, warm, dry, No rash, No jaundice, No cyanosis, No diaphoresis Lymphatic Exam: No adenopathy SpO2 Interpretation: normal SpO2: 97 O2 Delivery: Room Air - Course Nursing assessment & vital signs reviewed: Yes EKG Interpreted by Me: RATE (63/min), NORMAL AXIS, NORMAL INTERVALS, NORMAL QRS , NORMAL ST-T - CT Exams Head CT Interpretation: Negative, Tele-radiologist Report Cervical Spine CT Interpretation: Tele-radiologist Report Ordered Tests: Active Orders 24 hr Category Date Time Status EKG-ER Only STAT Care 05/10/19 10:41 Active IV Insertion STAT Care 05/10/19 10:38 Active IV Insertion STAT Care 05/10/19 10:41 Active CERVICAL SPINE WO CONTRAST [CT] Stat Exams 05/10/19 10:52 Completed HEAD WITHOUT CONTRAST [CT] Stat Exams 05/10/19 10:53 Completed CBC W DIFF Stat Lab 05/10/19 11:00 Completed CK-Creatinine Phosphokinase Stat Lab 05/10/19 11:00 Received CMP Stat Lab 05/10/19 11:00 Received LIPASE Stat Lab 05/10/19 11:00 Received Lactic Acid Stat Lab 05/10/19 11:33 Completed MAGNESIUM Stat Lab 05/10/19 11:00 Received TROPONIN Q3H Lab 05/10/19 13:45 Ordered TROPONIN Q3H Lab 05/10/19 16:45 Ordered TROPONIN Q3H Lab 05/10/19 19:45 Ordered TROPONIN Q3H Lab 05/10/19 22:45 Ordered UA W/RFX UR CULTURE Stat Lab 05/10/19 11:53 Completed Urine Triage Profile Stat Lab 05/10/19 11:34 Ordered Medication Summary Discontinued Medications Generic Name Dose Route Start Last Admin Trade Name Freq PRN Reason Stop Dose Admin Sodium Chloride 1,000 mls @ 999 mls/hr 05/10/19 10:38 05/10/19 11:29 Sodium Chloride 0.9% 1000 Ml IV 05/10/19 11:38 999 mls/hr .Q1H1M STA Administration Sodium Chloride Confirm 05/10/19 10:52 Sodium Chloride 0.9% 1000 Ml Administered 05/10/19 10:53 Dose 1,000 mls @ ud .ROUTE .STK-MED ONE Lab/Rad Data: Laboratory Result Diagrams 05/10/19 11:00 05/10/19 10:45 Laboratory Results 05/10/19 05/10/19 05/10/19 Range/Units 11:53 11:33 11:30 WBC (4.0-10.5) K/mm3 RBC (4.1-5.6) M/mm3 Hgb (12.5-18.0) gm/dl Hct (42-50) % MCV (78-100) fl MCH (26-32) pg MCHC (32-36) g/dl RDW (11.5-14.0) % Plt Count (150-450) K/mm3 MPV (6-9.5) fl Gran % (36.0-66.0) % Eos # (Auto) (0-0.5) Absolute Lymphs (auto) (1.0-4.6) Absolute Monos (auto) (0.0-1.3) Lymphocytes % (24.0-44.0) % Monocytes % (0.0-12.0) % Eosinophils % (0.00-5.0) % Basophils % (0.0-0.4) % Absolute Granulocytes (1.4-6.9) Basophils # (0-0.4) Sodium Direct (138-146) mmol/L Potassium (3.5-4.9) mmol/L Chloride (98-109) mmol/L Carbon Dioxide (24-29) mmol/L Venous BUN (8-26) mg/dL Creatinine (0.6-1.3) mg/dL Glucose (70-105) mg/dL Lactic Acid 1.6 (0.4-2.0) Ionized Calcium (1.12-1.32) mmol/L Troponin (0.00-0.03) ng/mL Urine Color YELLOW (YELLOW) Urine Appearance CLEAR (CLEAR) Urine pH 5.0 (5-6) Ur Specific Gilbert 1.030 (1.005-1.025) Urine Protein NEGATIVE (Negative) Urine Ketones TRACE (NEGATIVE) Urine Blood NEGATIVE (0-5) Diomedes/ul Urine Nitrite NEGATIVE (NEGATIVE) Urine Bilirubin NEGATIVE (NEGATIVE) Urine Urobilinogen NEGATIVE (0-1) mg/dL Ur Leukocyte Esterase NEGATIVE (NEGATIVE) Urine WBC (Auto) NONE (0-5) /HPF Urine RBC (Auto) NONE (0-2) /HPF U Epithel Cells (Auto) NONE (FEW) /HPF Urine Bacteria (Auto) NONE (NEGATIVE) /HPF Urine Culture Reflexed NO (NO) Urine Glucose >=500 (NEGATIVE) mg/dL Group A Strep Antibody NEGATIVE (NEGATIVE) 05/10/19 05/10/19 Range/Units 11:00 10:45 WBC 8.5 (4.0-10.5) K/mm3 RBC 4.09 L (4.1-5.6) M/mm3 Hgb 13.2 (12.5-18.0) gm/dl Hct 38.7 L (42-50) % MCV 94.6 (78-100) fl MCH 32.2 H (26-32) pg MCHC 34.1 (32-36) g/dl RDW 12.3 (11.5-14.0) % Plt Count 183 (150-450) K/mm3 MPV 10.4 H (6-9.5) fl Gran % 69.0 H (36.0-66.0) % Eos # (Auto) 0.12 (0-0.5) Absolute Lymphs (auto) 2.14 (1.0-4.6) Absolute Monos (auto) 0.34 (0.0-1.3) Lymphocytes % 25.2 (24.0-44.0) % Monocytes % 4.0 (0.0-12.0) % Eosinophils % 1.4 (0.00-5.0) % Basophils % 0.4 (0.0-0.4) % Absolute Granulocytes 5.87 (1.4-6.9) Basophils # 0.03 (0-0.4) Sodium Direct 135 L (138-146) mmol/L Potassium 3.6 (3.5-4.9) mmol/L Chloride 97 L (98-109) mmol/L Carbon Dioxide 26 (24-29) mmol/L Venous BUN 20 (8-26) mg/dL Creatinine 0.9 (0.6-1.3) mg/dL Glucose 290 H (70-105) mg/dL Lactic Acid (0.4-2.0) Ionized Calcium 1.15 (1.12-1.32) mmol/L Troponin 0.00 (0.00-0.03) ng/mL Urine Color (YELLOW) Urine Appearance (CLEAR) Urine pH (5-6) Ur Specific Gilbert (1.005-1.025) Urine Protein (Negative) Urine Ketones (NEGATIVE) Urine Blood (0-5) Diomedes/ul Urine Nitrite (NEGATIVE) Urine Bilirubin (NEGATIVE) Urine Urobilinogen (0-1) mg/dL Ur Leukocyte Esterase (NEGATIVE) Urine WBC (Auto) (0-5) /HPF Urine RBC (Auto) (0-2) /HPF U Epithel Cells (Auto) (FEW) /HPF Urine Bacteria (Auto) (NEGATIVE) /HPF Urine Culture Reflexed (NO) Urine Glucose (NEGATIVE) mg/dL Group A Strep Antibody (NEGATIVE) - Progress Progress: improved Progress Note: 05/10/19 13:12 Pt feels fine, denies dizziness, nausea, or severe pain, reviewed his CT and lab results, his glucose is 153 on his Insulin pump monitor, we called Dr Le , discussed his findings and he agreed to discharge him to follow up in his office in few days, patient was informed and agreed. 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 return if severe arm weakness, loss of strength, severe ehadaches, or blood glucose > 450 or < 60, severe weakness, dizziness, or vomiting!
[2019-05-10] MEDS ORDERED: Sodium Chloride 0.9% 1000 ML 1,000 ML ONE (10:52)
[2019-05-10 11:32] LABS: BASOPHIL % 0.4 % (0.0-0.4); Basophil (Absolute #) 0.03 (0-0.4); Eosinophil % 1.4 % (0.00-5.0); Eosinophil (Absolute #) 0.12 (0-0.5); Granulocyte Absolute (ANC) 5.87 (1.4-6.9); Hematocrit 38.7 % (42-50); Hemoglobin 13.2 gm/dl (12.5-18.0); Lymphocyte (Absolute #) 2.14 (1.0-4.6); Lymphocytes % 25.2 % (24.0-44.0); Mean Cell Volume 94.6 fl (78-100); Mean Corpuscular Hgb Concent. 34.1 g/dl (32-36); Mean Platelet Volume 10.4 fl (6-9.5); Monocyte (Absolute #) 0.34 (0.0-1.3); Platelet Count 183 K/mm3 (150-450); Red Blood Count 4.09 M/mm3 (4.1-5.6); Red Cell Distribution Width 12.3 % (11.5-14.0); White Blood Count 8.5 K/mm3 (4.0-10.5)
[2019-05-10 11:44] LABS: ISTAT CREA 0.9 mg/dL (0.6-1.3)
[2019-05-10 12:02] LABS: Appearance CLEAR (CLEAR); Bilirubin NEGATIVE (NEGATIVE); Blood NEGATIVE Ery/ul (0-5); Glucose >=500 mg/dL (NEGATIVE); Ketones TRACE (NEGATIVE); Leukocyte Esterase NEGATIVE (NEGATIVE); Nitrite NEGATIVE (NEGATIVE); Protein,Urine Dip NEGATIVE (Negative); Urobilinogen NEGATIVE mg/dL (0-1)
--- NOTE | 2019-05-10 12:12 | XRAY ---
Indication: Right arm weakness. I blood pressure. Multiple contiguous axial images obtained through the cervical spine. Sagittal and coronal reformatted images obtained. Comparison: None Axial images negative for acute fracture, suspicious bony lesions, or spinal canal stenosis. Mild C4-C5 degenerative endplate spurring. Sagittal and coronal reformatted images demonstrate normal alignment with mild C4-C5 disc space narrowing. No acute compression fracture, subluxation, or jumped facet. Normal appearing craniocervical junction. Visualized noncontrasted soft tissues unremarkable. Lung apices demonstrates pulmonary emphysema. Impression: 1. Mild C4-C5 degenerative changes and pulmonary emphysema. 2. Remaining CT cervical spine is negative. CTDI 50.27
[2019-05-10 12:13] LABS: Mean Corpuscular Hemoglobin 32.2 pg (26-32)
--- NOTE | 2019-05-10 12:13 | XRAY ---
Indication: Right arm numbness and weakness. High blood pressure. Multiple contiguous axial images obtained through the head without contrast. Comparison: May 24, 2016. Again normal appearing brain parenchyma, ventricles, and bony calvarium. Minimal mucosal thickening both maxillary sinuses without fluid leveling. Remaining visualized paranasal sinuses and mastoid air cells are clear. Impression: Again minimal paranasal sinus disease. No new or acute intracranial abnormalities. CT DI 69.52
[2019-05-10 13:35] LABS: ALBUMIN 3.4 g/dL (3.5-5.0); ALKALINE PHOSPHATASE 90 U/L (38-126); ANION GAP 10.2 MEQ/L (5-15); CK-Creatinine Phosphokinase 78 U/L (55-170); Calcium 8.6 mg/dL (8.4-10.2); LIPASE 22 U/L (23-300); MAGNESIUM 2.1 mg/dL (1.6-2.3); SGOT/AST 22 U/L (17-59); SGPT/ALT 13 U/L (0-50); Total Protein 6.4 g/dL (6.3-8.2)
[2019-05-10 13:39] VITALS: BP 101/73; O2SAT 96
[2019-05-10 13:45] LABS: Amphetamine,Urine NEGATIVE (NEGATIVE); Barbiturate,Urine NEGATIVE (NEGATIVE); Benzodiazepine,Urine NEGATIVE (NEGATIVE); Cocaine,Urine NEGATIVE (NEGATIVE); Methadone,Urine NEGATIVE (NEGATIVE); Opiate,Urine POSITIVE (NEGATIVE); PCP,Urine NEGATIVE (NEGATIVE); THC,Urine NEGATIVE (NEGATIVE)
[2019-05-10 13:53] VITALS: PULSE 78
== END 2019-05-10 13:55 | disposition home or self-care (01) ==
LOC: ED 10:29
DX: E10.65 Type 1 diabetes mellitus with hyperglycemia (principal)
CPT/HCPCS: 36000; 36415; 70450; 72125; 80047; 80053; 80307; 81001; 82550; 83605; 83690; 83735; 84484; 85025; 87651; 93005; 96360; 99284

== ENCOUNTER 2019-06-27 08:49 | Emergency (ER) | payer OTHER ==
[2019-06-27] MEDS ORDERED: TORAdol 30 mg Injection IM ONE (09:02)
--- NOTE | 2019-06-27 09:05 | ERPHSYRPT ---
- History of Present Illness Time Seen by Provider: 06/27/19 09:03 Source: patient Exam Limitations: no limitations Patient Subjective Stated Complaint: pt reports he choked one week ago and received the heimlich. states he has left sided rib pain that is increased with inspiration and movement. Triage Nursing Assessment: pt is aox3, pupils perrl, afebrile, resps easy and non labored, pt lung sounds are clear throughout all [place], radial pulses strong and equal, cap refill < 3 seconds, pt skin pink warm dry. no obvious injury or deformity noted. skin is intact. insulin pump noted to pt lower left abdomen. Physician History: pt reports he choked one week ago and received the heimlich. states he has left sided rib pain that is increased with inspiration and movement. Timing/Duration: week(s) (for 1 week) Severity: moderate Modifying Factors: Improves With: nothing Associated Symptoms: denies symptoms Allergies/Adverse Reactions: No Known Drug Allergies Allergy (Verified 06/27/19 09:02) Home Medications: Sertraline HCl 50 mg [Zoloft 50 mg Tablet] 150 mg PO HS 06/17/18 [History] Insulin Lispro [Admelog] 9 units IJ TID 11/14/18 [History] Donepezil HCl 10 mg PO HS 05/09/19 [History] Hx Tetanus, Diphtheria Vaccination/Date Given: (unk) Hx Influenza Vaccination/Date Given: No Hx Pneumococcal Vaccination/Date Given: No Immunizations Up to Date: Yes - Review of Systems Constitutional: No Symptoms Eyes: No Symptoms Ears, Nose, & Throat: No Symptoms Respiratory: Other (left side chest wall pain) Cardiac: No Symptoms Abdominal/Gastrointestinal: No Symptoms Genitourinary Symptoms: No Symptoms Musculoskeletal: Injury (left side chest wall injury) - Past Medical History Pertinent Past Medical History: Yes Neurological History: No Pertinent History ENT History: No Pertinent History Cardiac History: No Pertinent History Respiratory History: No Pertinent History Endocrine Medical History: Diabetes Type I Musculoskeletal History: No Pertinent History GI Medical History: No Pertinent History History: No Pertinent History Psycho-Social History: Anxiety Male Reproductive Disorders: No Pertinent History - Past Surgical History Past Surgical History: No - Social History Smoking Status: Current every day smoker How long have you smoked: 30 Exposure to second hand smoke: Yes Alcohol Use: None Drug Use: none Patient Lives Alone: No Significant Family History: diabetes - Nursing Vital Signs Nursing Vital Signs: Initial Vital Signs Temperature 97.7 F 06/27/19 08:52 Pulse Rate 67 06/27/19 08:52 Respiratory Rate 20 06/27/19 08:52 Blood Pressure 119/79 06/27/19 08:52 O2 Sat by Pulse Oximetry 100 06/27/19 08:52 Pain Scale Pain Intensity 6 - Physical Exam General Appearance: no apparent distress Eye Exam: PERRL/EOMI Ears, Nose, Throat Exam: normal ENT inspection Neck Exam: normal inspection Respiratory Exam: chest tenderness (left side) Cardiovascular Exam: regular rate/rhythm Gastrointestinal/Abdomen Exam: soft Male Genitalia Exam: normal genitalia Back Exam: normal inspection Extremity Exam: normal inspection SpO2: 100 - Radiology Exams Chest X-ray Interpretation: Reviewed by me Ribs X-ray Interpretation: Reviewed by me Ordered Tests: Medication Summary Discontinued Medications Generic Name Dose Route Start Last Admin Trade Name Freq PRN Reason Stop Dose Admin Ketorolac Tromethamine 60 mg 06/27/19 09:02 06/27/19 09:15 Toradol 30 Mg Injection IM 06/27/19 09:03 60 mg STAT ONE Administration Ketorolac Tromethamine Confirm 06/27/19 09:09 Toradol 30 Mg Injection Administered 06/27/19 09:10 Dose 30 mg .ROUTE .STK-MED ONE Ketorolac Tromethamine Confirm 06/27/19 09:16 Toradol 30 Mg Injection Administered 06/27/19 09:17 Dose 30 mg .ROUTE .STK-MED ONE - Progress Progress: unchanged, pain not gone completely - Departure Departure Disposition: Home Clinical Impression: Rib pain on left side Condition: Stable Critical Care Time: No Referrals: AMI LE MD [Primary Care Provider] - Instructions: Bruised Rib Additional Instructions: Discharge/Care Plan LAURA CHRISTENSENCHAD GUTIERREZ was seen on 06/27/19 in the Emergency Room. The patient was counseled regarding Diagnosis,Lab results, Imaging studies, need for follow up and when to return to the Emergency Room. Prescriptions given: Discharge Note I have spoken with the patient and/or caregivers. I have explained the patient' s condition, diagnosis and treatment plan based on the information available to me at this time. I have answered the patient's and/or caregiver's questions and addressed any concerns. The patient and/or caregivers have as good understanding of the patient's diagnosis, condition and treatment plan as can be expected at this point. The vital signs have been stable. The patient's condition is stable and appropriate for discharge from the emergency department. The patient will pursue further outpatient evaluation with the primary care physician or other designated or consulting physician as outlined in the discharge instructions. The patient and/or caregivers are agreeable to this plan of care and follow-up instructions have been explained in detail. The patient and/or caregivers have received these instruction. The patient/and or caregivers are aware that any significant change in condition or worsening of symptoms should prompt an immediate return to this or the closest emergency department or call 911. LAURA CHRISTENSENCHAD GUTIERREZ was seen on 06/27/19 n the Emergency Room. At that time you were treated for an emergent condition, during your visit Laboratory, Radiology and/or other procedures may have been ordered. It is very important that you follow-up with your Primary Care Physician AMI LE within the next 24-48 hours to review your Emergency Room visit and the final results of testing that was ordered. Some test results such as Urine Cultures, Blood Cultures, and other cultures if ordered will not be finalized for 24-48 hours. If you do not have a Primary Care Provider please call the medical records department at [phone] to obtain a copy of your results or you may sign into our patient portal to obtain these results by visiting us @ [email or web address] and completing the following steps: 1. Click on the Patient Portal link 2. Click the Patient Self Enrollment Link to complete the enrollment form and entering your 3. Once the enrollment form is completed you will receive an email with a temporary ID and password at the email address you provided. 4. Next choose a user name and password. Your user name must be at least 4 characters long and your password must be at least 4 characters long. 5. Choose a security question from the list and provide your answer to the question. If you already have signed into the Health Portal you may access your Health Care Information 14/04 by the following steps: 1. Login to our website @ [email or web address] 2. Enter your original user name and password. FAQS The [facility] Health Portal is an online tool that contains your Lab Results, Radiology Reports, Visit History, Discharge Instructions and Health Summary Lab and Radiology Results will not be available for 72 hours on the portal. The Portal is a secure site, passwords are encryted and URLs are re-written so they cannot be copied and pasted. You and authorized family members are the only ones who can access your Portal. Also there is a timeout feature that protects your information if you leave the Portal page open. If you have technical difficulty please use the Contact Us link on the page this will allow you to submit any questions you have regarding the Portal or you may contact the Medical Record Department at [phone] ext [phone]. Prescriptions: Diclofenac Epolamine PATCH [Flector PATCH] 1 each TP BID #30 adh..patch Naproxen 375 mg [Naprosyn 375 mg] 375 mg PO Q8H #30 tablet
[2019-06-27] MEDS ORDERED: TORAdol 30 mg Injection ONE ×2 (09:09→09:16)
[2019-06-27 10:21] VITALS: BP 120/78; PULSE 70
--- NOTE | 2019-06-27 20:13 | XRAY ---
Indication: Left lower rib pain. Status post Heimlich maneuver one week ago. Comparison: December 23, 2014 PA/lateral chest demonstrates new bibasilar subsegmental atelectasis/scarring. Remaining heart and lungs normal. Bony thorax grossly intact. Left ribs reported separately.
--- NOTE | 2019-06-27 20:16 | XRAY ---
Indication: Left lower rib pain. Status post Heimlich maneuver one week ago. Comparison: None 2 views of the left ribs demonstrates essentially nondisplaced fractures involving anterior tips of the 7/8/9 ribs with left lung base subsegmental atelectasis. No pneumothorax/hemothorax. Chest reported separately. Comment: Fractures not reported by the interpreting ER clinician. Telephone report given to Dr. Alex in the ER at 2006 hrs. on June 27, 2019.
[2019-06-29 08:57] VITALS: O2SAT 100
== END 2019-06-27 09:50 | disposition home or self-care (01) ==
LOC: ED 08:49
DX: R07.81 Pleurodynia (principal)
CPT/HCPCS: 71046; 71100; 96372; 99284; J1885